=== PATIENT | female | born 2000 | race Caucasian/White ===

== ENCOUNTER → 2019-04-05 | Outpatient (CLI) | payer BC ==
[~2019-04-05] VITALS: Ht 165.1 cm; Wt 51.8 kg
[~2019-04-05] MED LIST: AZIT200S47 PO; CEFD300C3 PO; CITA-105 PO; CYCL10TA9 PO; DICY20TA10 PO; DOXYCYCLINE INJECTION 100 MG in NS (IVPB) 100 ML IV ONE; FLUO10CA19 PO; FLUO40CA PO; GUAI5LIQ PO; HYDR-3714 PO; HYOS0.1216 PO; HYOS0.127 SL; MEDR150D4 IM; NAPR-243 PO; NS IV 1000 ML 1,000 ML IV NR; NS IV 1000 ML 1,000 ML ONE; ONDA-42 PO; PNT40TEC PO; PRD20T PO; SULF1TAB38 PO; TRAM50TA2 PO; methylPREDNISolone 125 MG (Solu-MEDROL) VIAL IV NR; methylPREDNISolone 125 MG (Solu-MEDROL) VIAL ONE
[2019-04-05 10:01] VITALS: BP 112/75
== END ==
LOC: SDC 09:24
PROVIDERS: ATTEND Nurse Practitioner Family
DX: A77.0 Spotted fever due to Rickettsia rickettsii (principal)
CPT/HCPCS: 96361; 96365; 96374

== ENCOUNTER 2019-07-19 20:26 | Emergency (ER) | payer BC ==
[~2019-07-19] VITALS: Ht 162.5 cm; Wt 52.1 kg
[~2019-07-19 20:26] MED LIST changes: -DOXYCYCLINE INJECTION 100 MG in NS (IVPB) 100 ML IV ONE; -NS IV 1000 ML 1,000 ML IV NR; -NS IV 1000 ML 1,000 ML ONE; -methylPREDNISolone 125 MG (Solu-MEDROL) VIAL IV NR; -methylPREDNISolone 125 MG (Solu-MEDROL) VIAL ONE
--- NOTE | 2019-07-19 20:55 | NUR ---
PT WHEELED INTO ED ROOM 6 BY TECH, IMMEDIATELY AFTER PT IN ROOM THE MOTHER OF THE PT PRESENTS TO NURSING DESKING STATING, "IS THERE A REMOTE FOR THE TV?". MOTHER OF PT NOTIFIED THAT DR. CAM WAS ENTERING ROOM AT THIS TIME AND TV WOULD NEED TO REMAIN OFF DURING HER ASSESSMENT. PT MOTHER RETURNS TO ROOM 6 AND PRIOR TO ENTERING TURNS TO CASEY ABAD SITTING AT NURSING DESK AND LOUDLY STATES, "WOW, SHE'S RUDE" AND GLARES AT THIS CYLINDER INSPECTOR/RN. DUE TO THE HOSTILITY AND DISCOMFORT FELT BY THIS CYLINDER INSPECTOR/RN FROM PT MOTHER, TRANSFER OF CARE TO CASEY STACK.
[2019-07-19 20:57] LABS: BILIRUBIN,URINE NEGATIVE (NEGATIVE); CLARITY,URINE CLEAR; COLOR,URINE YELLOW; GLUCOSE, URINE (UA) NEGATIVE (NEGATIVE); KETONES,URINE 3+ (NEGATIVE); LEUKOCYTE ESTERASE ,URINE NEGATIVE (NEGATIVE); NITRITE,URINE NEGATIVE (NEGATIVE); PROTEIN,URINE TRACE (NEGATIVE)
--- NOTE | 2019-07-19 20:59 | ED Back Pain ---
General Chief Complaint: Back Problems Stated Complaint: BACK PAIN Nursing Triage Note: TO ED ROOM 6 VIA W/C. HX CHRONIC BACK PAIN. SAW CHIROPRACTOR YESTERDAY, PAIN INTOLERABLE TODAY. TOOK IBUPROFEN AT 1700 TODAY. CRYING, ANXIOUS DURING TRIAGE. Nursing Sepsis Screen: No Definite Risk Source of Information: Patient History of Present Illness Date Seen by Provider: Jul 19, 2019 Time Seen by Provider: 20:45 Initial Comments PT ARRIVES VIA POV FROM HOME, THEN WANTS WHEELCHAIR ON ARRIVAL, ARRIVES WITH MOM PT STATES THAT SHE "COULDN'T BREATHE YESTERDAY" SO SHE WENT TO THE CHIROPRACTOR AND SHE HAD SEVERAL RIBS OUT AND HE PUT THEM BACK IN PLACE AND STATES TODAY SHE HAS SEVERE PAIN ALL OVER HER ENTIRE BACK STATES "I ALWAYS HAVE BACK PAIN" STATES SHE HAD "T4 AND T5 COMPRESSION FRACTURES TWO TIMES IN 2016"--NO SURGERY. STATES THE FIRST TIME WAS FROM FALLING DOWN STAIRS, THE SECOND TIME WAS 8 MONTHS LATER WHEN SHE WAS DROPPED DURING A CHEERLEADING STUNT. --ON REVIEW OF OLD RECORDS, IT WAS IN 2014, AND SHE HAD T5 ENDPLATE MINOR COMPRESSION, AND IT WAS NOT PRESENT ON HER SECOND VISIT LATER THAT SAME YEAR. BOTH TIMES SHE WAS TRANSFERRED TO AND NO SURGERY WAS DONE. PT STATES SHE HAS BEEN "TAKING 5 IBUPROFEN EVERY HOUR ALL DAY" STATES SHE HAS BEEN SITTING IN A CHAIR AT WORK ALL DAY TODAY HAD NORMAL BM YESTERDAY, BUT HAS NOT HAD A BM TODAY NO PROBLEMS URINATING AND IS VOIDING A NORMAL AMOUNT. STATES BOTH OF HER HANDS ARE NUMB AND TINGLY RIGHT NOW ( PT IS HYPERVENTILATING AND HAVING CARPAL SPASMS ) STATES SHE STARTED HAVING A NON-PRODUCTIVE COUGH AND NASAL CONGESTION YESTERDAY, AND BEGAN HAVING A SORE THROAT TODAY NO FEVER NO CHEST PAIN NO ONE ELSE IN HOUSEHOLD IS ILL. LMP WAS IN APRIL--ON OCP'S STATES SHE HAS RMSF IN [facility], AND HAS NOT HAD A PERIOD SINCE SHE WAS TREATED WITH ANTIBIOTICS FOR THAT. Other Comments PCP: DR. PALENCIA Allergies and Home Medications Allergies Coded Allergies: fentanyl (Verified Allergy, Mild, 01/22/15) itching hydrocodone (Unverified Allergy, Unknown, 05/25/15) morphine (Unverified Allergy, Unknown, 05/25/15) promethazine (Unverified Allergy, Unknown, 05/25/15) Home Medications Albuterol Sulfate 1 Puff Puff, 2 PUFF IH Q4H Prescribed by: BRAYDON CAM on 07/19/192301 Azithromycin 500 Mg Tablet, 500 MG PO DAILY FOR INFECTION Prescribed by: BRAYDON CAM on 07/19/192301 Cefdinir 300 Mg Capsule, 300 MG PO BID Prescribed by: BRAYDON CAM on 07/19/192301 Citalopram Hydrobromide 40 Mg Tablet, 40 MG PO DAILY, (Reported) Cyclobenzaprine HCl 5 Mg Tablet, 5-10 MG PO Q8H Prescribed by: BRAYDON CAM on 07/19/192301 Methylprednisolone 4 Mg Tab.ds.pk, 4 MG PO UD Prescribed by: BRAYDON CAM on 07/19/192301 Patient Home Medication List Home Medication List Reviewed: Yes Review of Systems Constitutional: no symptoms reported; No fever EENTM: see HPI, nose congestion, throat pain Respiratory: see HPI, cough, short of breath Cardiovascular: no symptoms reported; No chest pain, No edema, No palpitations, No syncope Gastrointestinal: no symptoms reported; No abdominal pain, No nausea, No vomiting Genitourinary: no symptoms reported : No LMP: Apr 05, 2019 Control/STD Prophylaxis: BC Pills Musculoskeletal: see HPI, back pain Skin: no symptoms reported; No rash Psychiatric/Neurological: See HPI, Anxiety, Paresthesia Past Paskmvx-Ddujdk-Nieqsd Hx Patient Social History Alcohol Use: Occasionally Uses Recreational Drug Use: Yes (DENIES BUT TESTED + FOR THC 07/19/19) Drug of Choice: DENIES BUT TESTED + FOR THC ON 07/19/19 Smoking Status: Never a Smoker Recent Foreign Travel: No Contact w/Someone Who Travel: No Recent Infectious Disease Expo: No Recent Hopitalizations: No Physical Abuse: No Sexual Abuse: No Mistreated: No Fear: No Immunizations Up To Date Tetanus Booster (TDap): Less than 5yrs PED Vaccines UTD: Yes Seasonal Allergies Seasonal Allergies: Yes Past Medical History Surgeries: Yes (EGD; NODULE ON NECK REMOVED; LAP CHOLECYSTECTOMY) Gallbladder, Orthopedic, Tonsillectomy Respiratory: Yes Asthma Currently Using CPAP: No Currently Using BIPAP: No Cardiac: No Neurological: Yes (transient paralysis of the lower extremities after back injury January 2015--MINOR COMPRESSION OF ENDPLATE OF T5, WITH NO SPINAL CORD ENCROACHMENT AND NO SURGERY--COMPLETE HEALING ON REPEAT CT SCANS) Female Reproductive Disorders: Menstrual Problems Sexually Transmitted Disease: No Genitourinary: Yes UTI-Chronic Gastrointestinal: Yes Gall Bladder Disease Musculoskeletal: Yes (COMPRESSION FRACTURE OF ENDPLATE T5 IN 2015--COMPLETE RESOLUTION ON REPEAT CT SCANS, NO SURGERY--HAD 2 SEPARATE INJURIES IN 2015; HAS CHRONIC BACK PAIN ) Back Injury Endocrine: No HEENT: No Cancer: No Psychosocial: Yes Anxiety, Depression Integumentary: No Blood Disorders: No Adverse Reaction/Blood Tranf: No Family Medical History Arthritis 19 MOTHER, Onset:Unknown Cervical cancer maternal grandmother, Onset:Unknown Completed stroke maternal grandmother, Onset:Unknown FH: breast cancer maternal grandmother, Onset:Unknown FH: lung cancer paternal grandfather, Onset:Unknown Kidney stone 19 MOTHER, Onset:Unknown Myocardial infarction maternal grandfather, Onset:Unknown UTI (urinary tract infection) 19 MOTHER, Onset:Unknown maternal grandmother, Onset:Unknown Physical Exam Vital Signs Vital Signs - First Documented 07/19/19 07/19/19 20:43 23:13 Temp 37.3 Pulse 120 Resp 22 B/P (MAP) 115/79 (91) Pulse Ox 98 O2 Delivery Room Air Capillary Refill : Less Than 3 Seconds Height, Weight, BMI Height: 5'5.00" Weight: 114lbs. 3.2oz. 51.122183hm; 19.00 BMI Method:Stated General Appearance: Anxious, Thin, Other (PT EXTREMELY DRAMATIC, EXTREMELY ANXIOUS --NEARLY HYSTERICAL--WITH WAILING, MOANING, SOBBING AND SIGNIFICANTLY HYPERVENTILATING ON ARRIVAL, WITH CARPAL SPASMS ON ARRIVAL. ) HEENT: PERRL/EOMI, TMs Normal, Other (PHARYNIX MILDLY INFLAMED. + NASAL CONGESTION AND CLEAR RHINORRHEA, NO SINUS TENDERNESS) Neck: Full Range of Motion, Normal Inspection, Non Tender, Supple Cardiovascular: Regular Rate, Rhythm, No Edema, No JVD, No Murmur, Normal Peripheral Pulses Respiratory: Chest Non Tender, Normal Breath Sounds, Other (HYPERVENTILATING ON ARRIVAL) Peripheral Pulses: 2+ Dorsalis Pedis (R), 2+ Left Dors-Pedis (L), 2+ Radial Pulses (R), 2+ Radial Pulses (L) Gastrointestinal: Normal Bowel Sounds, No Organomegaly, No Pulsatile Mass, Non Tender, Soft Back: Other (DIFFUSE TENDERNESS OF ENTIRE BACK) Extremity: Normal Capillary Refill, Non Tender, No Calf Tenderness, No Pedal Edema, Other (CARPAL SPASMS ON ARRIVAL) Neurologic/Psychiatric: Alert, Oriented x3, No Motor/Sensory Deficits, svp marketing II- XII Norm as Tested, Other (MENTATION/BEHAVIOR ABOVE) Skin: Normal Color, Warm/Dry Progress/Results/Core Measures Results/Orders Lab Results Laboratory Tests Test 07/19/19 20:51 07/19/19 21:25 07/19/19 22:17 Range/Units Urine Color YELLOW Urine Clarity CLEAR Urine pH 6.0 5-9 Urine Specific [place] 1.025 H 1.016-1.022 Urine Protein TRACE NEGATIVE Urine Glucose (UA) NEGATIVE NEGATIVE Urine Ketones 3+ H NEGATIVE Urine Nitrite NEGATIVE NEGATIVE Urine Bilirubin NEGATIVE NEGATIVE Urine Urobilinogen 0.2 < = 1.0 MG/DL Urine Leukocyte Esterase NEGATIVE NEGATIVE Urine RBC (Auto) 1+ H NEGATIVE Urine RBC 0-2 /HPF Urine WBC NONE /HPF Urine Squamous Epithelial Cells 2-5 /HPF Urine Crystals NONE /LPF Urine Bacteria TRACE /HPF Urine Casts NONE /LPF Urine Mucus MODERATE H /LPF Urine Culture Indicated NO Urine Opiates Screen NEGATIVE NEGATIVE Urine Oxycodone Screen NEGATIVE NEGATIVE Urine Methadone Screen NEGATIVE NEGATIVE Urine Propoxyphene Screen NEGATIVE NEGATIVE Urine Barbiturates Screen NEGATIVE NEGATIVE Ur Tricyclic Antidepressants Screen POSITIVE H NEGATIVE Urine Phencyclidine Screen NEGATIVE NEGATIVE Urine Amphetamines Screen NEGATIVE NEGATIVE Urine Methamphetamines Screen NEGATIVE NEGATIVE Urine Benzodiazepines Screen NEGATIVE NEGATIVE Urine Cocaine Screen NEGATIVE NEGATIVE Urine Cannabinoids Screen POSITIVE H NEGATIVE White Blood Count 5.3 4.3-11.0 10^3/uL Red Blood Count 4.39 4.35-5.85 10^6/uL Hemoglobin 14.0 11.5-16.0 G/DL Hematocrit 40 35-52 % Mean Corpuscular Volume 90 80-99 FL Mean Corpuscular Hemoglobin 32 25-34 PG Mean Corpuscular Hemoglobin Concent 35 32-36 G/DL Red Cell Distribution Width 12.0 10.0-14.5 % Platelet Count 178 130-400 10^3/uL Mean Platelet Volume 10.7 H 7.4-10.4 FL Neutrophils (%) (Auto) 67 42-75 % Lymphocytes (%) (Auto) 23 12-44 % Monocytes (%) (Auto) 9 0-12 % Eosinophils (%) (Auto) 0 0-10 % Basophils (%) (Auto) 0 0-10 % Neutrophils # (Auto) 3.6 1.8-7.8 X 10^3 Lymphocytes # (Auto) 1.2 1.0-4.0 X 10^3 Monocytes # (Auto) 0.5 0.0-1.0 X 10^3 Eosinophils # (Auto) 0.0 0.0-0.3 10^3/uL Basophils # (Auto) 0.0 0.0-0.1 10^3/uL Sodium Level 139 135-145 MMOL/L Potassium Level 4.0 3.6-5.0 MMOL/L Chloride Level 103 98-107 MMOL/L Carbon Dioxide Level 18 L 21-32 MMOL/L Anion Gap 18 H 5-14 MMOL/L Blood Urea Nitrogen 11 7-18 MG/DL Creatinine 0.94 0.60-1.30 MG/DL Estimat Glomerular Filtration Rate > 60 BUN/Creatinine Ratio 12 Glucose Level 87 70-105 MG/DL Calcium Level 9.8 8.5-10.1 MG/DL Corrected Calcium 9.5 8.5-10.1 MG/DL Total Bilirubin 1.0 0.1-1.0 MG/DL Aspartate Amino Transf (AST/SGOT) 16 5-34 U/L Alanine Aminotransferase (ALT/SGPT) 16 0-55 U/L Alkaline Phosphatase 46 40-136 U/L Total Protein 7.5 6.4-8.2 GM/DL Albumin 4.4 3.2-4.5 GM/DL Group A Streptococcus Screen NEGATIVE NEGATIVE Micro Results Microbiology 07/19/19 Influenza Types A,B Antigen (LIBIA) - Final, Complete My Orders Orders - BRAYDON CAM DO Urine Bedside (07/19/19 20:43) Ua Culture If Indicated (07/19/19 20:43) Ed Iv/Invasive Line Start (07/19/19 21:00) Chest Pa/Lat (2 View) (07/19/19 21:00) Cbc With Automated Diff (07/19/19 21:00) Comprehensive Metabolic Panel (07/19/19 21:00) Drug Screen Stat (Urine) (07/19/19 21:00) Rapid Strep A Screen (07/19/19 21:00) Influenza A And B Antigens (07/19/19 21:00) Ed Iv/Invasive Line Start (07/19/19 21:00) Lactated Ringers (Lr 1000 Ml Iv Solution (07/19/19 21:00) Ketorolac Injection (Toradol Injection) (07/19/19 21:00) Orphenadrine Injection (Norflex Injectio (07/19/19 21:00) Ct Cerv/Thoracic/Lumbar Wo (07/19/19 21:00) Diphenhydramine Injection (Benadryl Inje (07/19/19 21:00) Ondansetron Injection (Zofran Injectio (07/19/19 22:15) Ceftriaxone For Iv Use (Rocephin For I (07/19/19 22:15) Azithromycin Tablet (Zithromax Tablet) (07/19/19 22:15) Rt Request For Service (07/19/19 22:58) Medications Given in ED Current Medications Medications Dose Ordered Sig/Dean Route Start Time Stop Time Status Last Admin Dose Admin Azithromycin 500 mg ONCE ONCE PO 07/19/19 22:15 07/19/19 22:16 DC 07/19/19 22:35 500 MG Ceftriaxone Sodium 1000 mg/ Sterile Water 10 ml @ 200 mls/hr ONCE ONCE IV 07/19/19 22:15 07/19/19 22:17 DC 07/19/19 22:35 200 MLS/HR Diphenhydramine HCl 50 mg ONCE ONCE IVP 07/19/19 21:00 07/19/19 21:03 DC 07/19/19 21:27 50 MG Lactated Ringer's 1,000 ml @ 0 mls/hr Q0M ONCE IV 07/19/19 21:00 07/19/19 21:03 DC 07/19/19 21:36 0 MLS/HR Ondansetron HCl 4 mg ONCE ONCE IVP 07/19/19 22:15 07/19/19 22:16 DC 07/19/19 22:34 4 MG Vital Signs/I&O 07/19/19 07/19/19 07/19/19 20:43 23:13 23:26 Temp 37.3 37.3 Pulse 120 120 Resp 22 22 B/P (MAP) 115/79 (91) 106/87 (91) Pulse Ox 98 O2 Delivery Room Air Room Air 07/20/19 00:00 Intake Total 1000 ml Balance 1000 ml Blood Pressure Mean: 91 POS Progress Progress Note : Progress Note PT EVENTUALLY CALMED, STOPPED HYPERVENTILATING AND CARPAL SPASMS SUBSIDED. GIVEN TORADOL, NORFLEX AND BENADRYL AND SYMPTOMS IMPROVED NO DETERIORATION IN PT'S CONDITION DURING ER STAY PT AMBULATED OUT OF ER ON HER OWN, VERY SLOWLY AND VERY DRAMATICALLY. Diagnostic Imaging Comments CT CERVICAL/ THORACIC/LUMBAR SPINE--NORMAL, WITH NO EVIDENCE OF PREVIOUS T5 ENDPLATE COMPRESSION--COMPLETELY RESOLVED. RIGHT PERIHILAR CONSOLIDATION--PER RADIOLOGIST REPORT AT 2209 CXR--RUL PERIHILAR INFILTRATE--PER RADIOLOGIST REPORT AT 2253 Reviewed: Reviewed by Me Departure Impression Primary Impression: Right upper lobe pneumonia Additional Impression: Exacerbation of chronic back pain Disposition: HOME, SELF-CARE Condition: Improved Departure-Patient Inst. Referrals: LAILA PALENCIA DO (PCP/Family) Primary Care Physician Patient Instructions: MANAGING YOUR CHRONIC PAIN, Pneumonia, Adult (DC) Add. Discharge Instructions: NO MARIJUANA OR SMOKING OR VAPING OF ANY KIND LOTS OF CLEAR LIQUIDS--WATER, BROTH, JELLO, GATORADE TYLENOL 1 GRAM/ MOTRIN 800 MG 4 TIMES A DAY NEEDED FOR PAIN OR FEVER MUCINEX DM NEEDED FOR COUGH FOLLOW UP WITH DR. PALENCIA IN 3-4 DAYS FOR FURTHER CARE, RETURN TO ER IF WORSE All discharge instructions reviewed with patient and/or family. Voiced understanding. Scripts Azithromycin (Zithromax) 500 Mg Tablet 500 MG PO DAILY, #5 TAB FOR INFECTION Prov: BRAYDON CAM DO 07/19/19 Methylprednisolone (Medrol) 4 Mg Tab.ds.pk 4 MG PO UD, #1 PKG Prov: BRAYDON CAM DO 07/19/19 Cyclobenzaprine HCl (Cyclobenzaprine HCl) 5 Mg Tablet 5-10 MG PO Q8H for Muscle Cramps, #15 TAB Prov: BRAYDON CAM DO 07/19/19 Cefdinir (Cefdinir) 300 Mg Capsule 300 MG PO BID for FOR INFECTION, #20 CAP Prov: BRAYDON CAM DO 07/19/19 Albuterol Sulfate (PROAIR HFA) 1 Puff Puff 2 PUFF IH Q4H for BREATHING, #1 GM Prov: BRAYDON CAM DO 07/19/19 BRAYDON CAM DO Jul 19, 2019 20:59 POS
[2019-07-19] MEDS ORDERED: KETOROLAC 30 MG/ML VIAL IVP STA (21:00)
[2019-07-19] MEDS ORDERED: ORPHENADRINE 60 MG/2 ML (NORFLEX) AMP IV STA (21:00)
[2019-07-19] MEDS ORDERED: diphenhydrAMINE 50 MG/ML INJ (BENADRYL) IVP ONE (21:00)
[2019-07-19] MEDS ORDERED: LACTATED RINGERS 1,000 ML IV ONE (21:00)
[2019-07-19 21:09] LABS: BACTERIA,URINE TRACE /HPF; RBC,URINE 0-2 /HPF
[2019-07-19 21:20] LABS: AMPHETAMINE SCREEN, URINE NEGATIVE (NEGATIVE); BARBITURATE SCREEN URINE NEGATIVE (NEGATIVE); BENZODIAZEPINES SCREEN URINE NEGATIVE (NEGATIVE); CANNABINOID SCREEN, URINE POSITIVE (NEGATIVE); COCAINE SCREEN URINE NEGATIVE (NEGATIVE); METHADONE STAT NEGATIVE (NEGATIVE); METHAMPHETAMINE SCREEN URINE S NEGATIVE (NEGATIVE); OPIATE SCREEN URINE NEGATIVE (NEGATIVE); OXYCODONE STAT NEGATIVE (NEGATIVE); PROPOXYPHENE STAT NEGATIVE (NEGATIVE); TRICYCLIC ANTIDEPRESSANTS SCRE POSITIVE (NEGATIVE)
[2019-07-19 21:33] LABS: BASOPHILS % (AUTO) 0 % (0-10); EOSINOPHILS % (AUTO) 0 % (0-10); HEMATOCRIT 40 % (35-52); LYMPHOCYTES # (AUTO) 1.2 X 10^3 (1.0-4.0); LYMPHOCYTES % (AUTO) 23 % (12-44); MEAN CORPUSCULAR HEMOGLOBIN 32 PG (25-34); MEAN CORPUSCULAR HGB CONC 35 G/DL (32-36); MEAN CORPUSCULAR VOLUME 90 FL (80-99); MEAN PLATELET VOLUME 10.7 FL (7.4-10.4); MONOCYTES # (AUTO) 0.5 X 10^3 (0.0-1.0); MONOCYTES % (AUTO) 9 % (0-12); NEUTROPHILS # (AUTO) 3.6 X 10^3 (1.8-7.8); NEUTROPHILS % (AUTO) 67 % (42-75); PLATELET COUNT 178 10^3/uL (130-400); WHITE BLOOD COUNT 5.3 10^3/uL (4.3-11.0)
[2019-07-19 21:53] LABS: ALANINE AMINOTRANSFERASE 16 U/L (0-55); ALBUMIN 4.4 GM/DL (3.2-4.5); ALKALINE PHOSPHATASE 46 U/L (40-136); BUN/CREATININE RATIO 12; CALCIUM 9.8 MG/DL (8.5-10.1); CARBON DIOXIDE 18 MMOL/L (21-32); CHLORIDE 103 MMOL/L (98-107); CREATININE SERUM 0.94 MG/DL (0.60-1.30); GFR ESTIMATED > 60; GLUCOSE 87 MG/DL (70-105); SODIUM 139 MMOL/L (135-145); TOTAL PROTEIN 7.5 GM/DL (6.4-8.2)
--- NOTE | 2019-07-19 22:06 | Diagnostic Imaging Report ---
TECHNIQUE: Noncontrast CT of the cervical, thoracic, and lumbar spine. Sagittal and coronal reformats were obtained and reviewed. Dose reduction techniques were utilized. REASON FOR EXAM: Back pain. History of T5 fracture. COMPARISON: 08/11/2015 FINDINGS: No acute fracture or dislocation is seen in the cervical, thoracic, and lumbar spine. Alignment is anatomic. The craniocervical junction is maintained. No evidence of acute spinal canal compression is seen. The vertebral body heights are well-maintained. No significant degenerative changes are present. The included soft tissues are unremarkable. Included views of the chest demonstrate consolidative opacities in the right perihilar region. IMPRESSION: 1. No acute fracture or dislocation in the cervical, thoracic, and lumbar spine. The previously noted fracture involving the superior endplate of T5, which was not visualized on the prior exam, is again not visualized and likely represents complete resolution. 2. Consolidative opacities in the right perihilar region, which may represent infection. Dictated by: Dictated on workstation # [id number]
--- NOTE | 2019-07-19 22:14 | Diagnostic Imaging Report ---
Patient History: Cough. Back pain. Technique: Two views of the chest Comparison: 01/22/2015 FINDINGS: The lung volumes are normal. Consolidative opacity is seen in the right upper lobe near the perihilar region. No pleural effusion or pneumothorax. The cardiac silhouette is unremarkable. No acute osseous abnormalities. IMPRESSION: 1. Consolidative opacity in the right upper lobe in the perihilar region, concerning for infection. Dictated by: Dictated on workstation # [id number]
[2019-07-19] MEDS ORDERED: ONDANSETRON 4 MG/2 ML (SDV) Z0FRAN IVP ONE (22:15)
[2019-07-19] MEDS ORDERED: cefTRIAXone FOR IV USE 1,000 MG in WATER (STERILE) FOR INJECTION 10 ML IV ONE (22:15)
[2019-07-19] MEDS ORDERED: AZITHROMYCIN 250 MG TAB (ZITHROMAX) PO ONE (22:15)
[2019-07-19] MEDS ORDERED: CYCL5TAB PO (23:02)
[2019-07-19] MEDS ORDERED: METH4TAB PO (23:02)
[2019-07-19] MEDS ORDERED: AZIT500T PO (23:02)
[2019-07-19] MEDS ORDERED: RT-ALBUINH IH (23:02)
[2019-07-19] MEDS ORDERED: CEFD300C3 PO (23:02)
[2019-07-19 23:13] VITALS: BP 106/87
== END 2019-07-19 23:20 | disposition home or self-care (01) ==
LOC: EDUNIT# 20:26 → ER 20:27
DX: J18.1 Lobar pneumonia, unspecified organism (principal); M54.9 Dorsalgia, unspecified; G89.29 Other chronic pain; J45.909 Unspecified asthma, uncomplicated; F41.9 Anxiety disorder, unspecified; F32.9 Major depressive disorder, single episode, unspecified; Z88.5 Allergy status to narcotic agent; Z88.8 Allergy status to other drugs, medicaments and biological substances; Z90.49 Acquired absence of other specified parts of digestive tract; Z90.89 Acquired absence of other organs; Z87.440 Personal history of urinary (tract) infections; Z80.49 Family history of malignant neoplasm of other genital organs; Z80.3 Family history of malignant neoplasm of breast; Z80.1 Family history of malignant neoplasm of trachea, bronchus and lung
CPT/HCPCS: 36415; 71046; 72125; 72128; 72131; 80053; 80306; 81000; 84703; 85025; 87430; 87804; 96361; 96374; 96375

== ENCOUNTER 2021-09-28 19:29 | Emergency (ER) | payer BC ==
[~2021-09-28] VITALS: Ht 160 cm; Wt 50.0 kg
[~2021-09-28 19:29] MED LIST changes: +AZIT500T PO; +CYCL5TAB PO; +METH4TAB PO; +RT-ALBUINH IH
[2021-09-28 19:52] LABS: BILIRUBIN,URINE NEGATIVE (NEGATIVE); CLARITY,URINE CLOUDY; COLOR,URINE YELLOW; GLUCOSE, URINE (UA) NEGATIVE (NEGATIVE); KETONES,URINE 2+ (NEGATIVE); LEUKOCYTE ESTERASE ,URINE 2+ (NEGATIVE); NITRITE,URINE NEGATIVE (NEGATIVE); PROTEIN,URINE TRACE (NEGATIVE)
[2021-09-28] MEDS ORDERED: NS IV 1000 ML 1,000 ML IV STA (19:52)
--- NOTE | 2021-09-28 19:56 | ED GU-Female ---
General Chief Complaint: OB < 20 WEEKS Stated Complaint: 8 WKS PREG - VOMTIING Nursing Triage Note: PT AMB TO ED BY POV WITH C/O N/V X 1 WK. PT IS APPROX 8 WKS . PT REPORTS USING MARIJUANA "TO HELP WITH THE NAUSEA." REPORTS HER OB WILL NOT PRESCRIBE HER ANY NAUSEA MEDICATION UNTIL SHE IS SEEN AGAIN IN TWO WEEKS. Source: patient Exam Limitations: no limitations History of Present Illness Date Seen by Provider: Sep 28, 2021 Time Seen by Provider: 19:53 Initial Comments Patient is a 21-year-old female presents ED with vomiting. She reports vomiting over the past week. She reports 10+ episodes of vomiting daily. Patient . She states she was seen by Dr. OQUENDO nurse this week and had lab work drawn. She has not been able to keep any food or fluid down. She states she feels dehydrated. She denies of any specific abdominal pain, diarrhea, fever, chills. No known medical problems. History of cholecystectomy. Decreased urine output without any pain. No vaginal bleeding or current abdominal pain. 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 Last menstrual cycle early August. Allergies and Home Medications Allergies Coded Allergies: fentanyl (Verified Allergy, Mild, 01/22/15) itching hydrocodone (Unverified Allergy, Unknown, 05/25/15) morphine (Unverified Allergy, Unknown, 05/25/15) promethazine (Unverified Allergy, Unknown, 05/25/15) Patient Home Medication List Home Medication List Reviewed: Yes Albuterol Sulfate (Proair Hfa) 1 Puff Puff, 2 PUFF IH Q4H Prescribed by: BRAYDON CAM on 07/19/192301 Azithromycin (Zithromax) 500 Mg Tablet, 500 MG PO DAILY Prescribed by: BRAYDON CAM on 07/19/192301 Cefdinir (Cefdinir) 300 Mg Capsule, 300 MG PO BID Prescribed by: BRAYDON CAM on 07/19/192301 Cephalexin (Cephalexin) 500 Mg Tablet, 500 MG PO BID Prescribed by: NAZARIO LARES on 09/28/212117 Citalopram Hydrobromide (Citalopram Hbr) 40 Mg Tablet, 40 MG PO DAILY, (Reported) Entered as Reported by: ROLANDA SMITH on 10/29/14 2070 Cyclobenzaprine HCl (Cyclobenzaprine HCl) 5 Mg Tablet, 5-10 MG PO Q8H Prescribed by: BRAYDON CAM on 07/19/192301 Fluconazole (Diflucan) 150 Mg Tablet, 150 MG PO DAILY Prescribed by: NAZARIO LARES on 09/28/212117 Methylprednisolone (Medrol) 4 Mg Tab.ds.pk, 4 MG PO UD Prescribed by: BRAYDON CAM on 07/19/192301 Metoclopramide HCl (Reglan) 10 Mg Tablet, 10 MG PO TID PRN for NAUSEA/VOMITING- 1ST LINE Prescribed by: NAZARIO LARES on 09/28/212118 Review of Systems Review of Systems Constitutional: No chills, No diaphoresis, No fever, No malaise EENTM: No ear pain, No vision loss, No nose pain, No throat pain, No throat swelling Respiratory: No cough, No orthopnea, No short of breath Gastrointestinal: No abdominal pain, No diarrhea; nausea, vomiting Genitourinary: denies burning, denies discharge, denies dysuria, denies frequency Musculoskeletal: No back pain, No joint pain Skin: No change in color, No change in hair/nails All Other Systemes Reviewed Negative Unless Noted: Yes Past Gjamcwo-Qlfmrl-Rkupfc Hx Patient Social History Tobacco Use?: No Smoking Status: Former Smoker Use of E-Cig and/or Vaping dev: No Substance use?: Yes Substance type: Marijuana Substance frequency: Daily Alcohol Use?: No Pt feels they are or have been: No Immunizations Up To Date Tetanus Booster (TDap): Less than 5yrs PED Vaccines UTD: Yes Influenza Vaccine Up-to-Date: No; Not Current First/Initial COVID19 Vaccinat: N/A Seasonal Allergies Seasonal Allergies: Yes Past Medical History Surgery/Hospitalization HX: CHOLECYSTECTOMY Surgeries: Yes (EGD; NODULE ON NECK REMOVED; LAP CHOLECYSTECTOMY) Gallbladder, Orthopedic, Tonsillectomy Respiratory: Yes Asthma Currently Using CPAP: No Currently Using BIPAP: No Cardiac: No Neurological: Yes Last Menstrual Period: Aug 06, 2021 Female Reproductive Disorders: Menstrual Problems Sexually Transmitted Disease: No Genitourinary: Yes UTI-Chronic Gastrointestinal: Yes Gall Bladder Disease Musculoskeletal: Yes Back Injury Endocrine: No HEENT: No Cancer: No Psychosocial: Yes Anxiety, Depression Integumentary: No Blood Disorders: No Adverse Reaction/Blood Tranf: No Family Medical History Arthritis 19 MOTHER, Onset:Unknown Cervical cancer maternal grandmother, Onset:Unknown Completed stroke maternal grandmother, Onset:Unknown FH: breast cancer maternal grandmother, Onset:Unknown FH: lung cancer paternal grandfather, Onset:Unknown Kidney stone 19 MOTHER, Onset:Unknown Myocardial infarction maternal grandfather, Onset:Unknown UTI (urinary tract infection) 19 MOTHER, Onset:Unknown maternal grandmother, Onset:Unknown Physical Exam Vital Signs Vital Signs - First Documented 09/28/21 19:36 Temp 37.0 Pulse 75 Resp 16 B/P (MAP) 115/77 (90) Pulse Ox 99 O2 Delivery Room Air Capillary Refill : Less Than 3 Seconds Height, Weight, BMI Height: 5'5.00" Weight: 114lbs. 3.2oz. 51.551137kd; 19.00 BMI Method:Stated General Appearance: WD/WN, no apparent distress HEENT: PERRL/EOMI, normal ENT inspection, TMs normal, pharynx normal Neck: non-tender, full range of motion, supple Cardiovascular: regular rate, rhythm, no edema, no gallop, no JVD Respiratory: chest non-tender, lungs clear, normal breath sounds, no respiratory distress, no accessory muscle use Gastrointestinal: normal bowel sounds, non tender, soft, no organomegaly Back: normal inspection, no CVA tenderness, no vertebral tenderness Extremities: normal range of motion, non-tender, normal inspection, no pedal edema, no calf tenderness Neurologic/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 nml as tested, no motor/sensory deficits, alert, normal mood/affect, oriented x 3 Skin: normal color, warm/dry Progress/Results/Core Measures Suspected Sepsis SIRS Temperature: Pulse: 75 Respiratory Rate: 16 Laboratory Tests 09/28/21 20:05: White Blood Count 8.7 Blood Pressure 115 /77 Mean: 90 Laboratory Tests 09/28/21 20:05: Creatinine 0.70, Platelet Count 269, Total Bilirubin 1.7H Results/Orders Lab Results Laboratory Tests Test 09/28/21 19:45 09/28/21 20:05 09/28/21 20:56 Range/Units Urine Color YELLOW Urine Clarity CLOUDY Urine pH 6.0 5-9 Urine Specific [place] >=1.030 1.016-1.022 Urine Protein TRACE H NEGATIVE Urine Glucose (UA) NEGATIVE NEGATIVE Urine Ketones 2+ H NEGATIVE Urine Nitrite NEGATIVE NEGATIVE Urine Bilirubin NEGATIVE NEGATIVE Urine Urobilinogen 0.2 < = 1.0 MG/DL Urine Leukocyte Esterase 2+ H NEGATIVE Urine RBC (Auto) TRACE-I H NEGATIVE Urine RBC 10-25 H /HPF Urine WBC 25-50 H /HPF Urine Squamous Epithelial Cells 2-5 /HPF Urine Renal Epithelial Cells NONE /HPF Urine Crystals NONE /LPF Urine Bacteria LARGE H /HPF Urine Casts NONE /LPF Urine Mucus LARGE H /LPF Urine Yeast MODERATE H /HPF Urine Culture Indicated YES Urine Opiates Screen NEGATIVE NEGATIVE Urine Oxycodone Screen NEGATIVE NEGATIVE Urine Methadone Screen NEGATIVE NEGATIVE Urine Propoxyphene Screen NEGATIVE NEGATIVE Urine Barbiturates Screen NEGATIVE NEGATIVE Ur Tricyclic Antidepressants Screen NEGATIVE NEGATIVE Urine Phencyclidine Screen NEGATIVE NEGATIVE Urine Amphetamines Screen NEGATIVE NEGATIVE Urine Methamphetamines Screen NEGATIVE NEGATIVE Urine Benzodiazepines Screen NEGATIVE NEGATIVE Urine Cocaine Screen NEGATIVE NEGATIVE Urine Cannabinoids Screen POSITIVE H NEGATIVE White Blood Count 8.7 4.3-11.0 10^3/uL Red Blood Count 4.43 3.80-5.11 10^6/uL Hemoglobin 14.5 11.5-16.0 g/dL Hematocrit 41 35-52 % Mean Corpuscular Volume 93 80-99 fL Mean Corpuscular Hemoglobin 33 25-34 pg Mean Corpuscular Hemoglobin Concent 35 32-36 g/dL Red Cell Distribution Width 11.5 10.0-14.5 % Platelet Count 269 130-400 10^3/uL Mean Platelet Volume 10.4 9.0-12.2 fL Immature Granulocyte % (Auto) 0 % Neutrophils (%) (Auto) 75 42-75 % Lymphocytes (%) (Auto) 17 12-44 % Monocytes (%) (Auto) 5 0-12 % Eosinophils (%) (Auto) 1 0-10 % Basophils (%) (Auto) 1 0-10 % Neutrophils # (Auto) 6.5 1.8-7.8 10^3/uL Lymphocytes # (Auto) 1.5 1.0-4.0 10^3/uL Monocytes # (Auto) 0.5 0.0-1.0 10^3/uL Eosinophils # (Auto) 0.1 0.0-0.3 10^3/uL Basophils # (Auto) 0.1 0.0-0.1 10^3/uL Immature Granulocyte # (Auto) 0.0 0.0-0.1 10^3/uL Sodium Level 137 135-145 MMOL/L Potassium Level 3.4 L 3.6-5.0 MMOL/L Chloride Level 104 98-107 MMOL/L Carbon Dioxide Level 20 L 21-32 MMOL/L Anion Gap 13 5-14 MMOL/L Blood Urea Nitrogen 13 7-18 MG/DL Creatinine 0.70 0.60-1.30 MG/DL Estimat Glomerular Filtration Rate 125 BUN/Creatinine Ratio 19 Glucose Level 87 70-105 MG/DL Calcium Level 9.7 8.5-10.1 MG/DL Corrected Calcium 9.3 8.5-10.1 MG/DL Total Bilirubin 1.7 H 0.1-1.0 MG/DL Aspartate Amino Transf (AST/SGOT) 24 5-34 U/L Alanine Aminotransferase (ALT/SGPT) 33 0-55 U/L Alkaline Phosphatase 46 40-136 U/L Total Protein 7.5 6.4-8.2 GM/DL Albumin 4.5 3.2-4.5 GM/DL Human Chorionic Gonadotropin, Quant 45708 H <5 MIU/ML Micro Results Microbiology 09/28/21 Wet Prep - Final, Complete My Orders Orders - ARNAV DUMAS Ua Culture If Indicated (09/28/21 19:41) Hcg,Quantitative (09/28/21 19:41) Cbc With Automated Diff (09/28/21 19:52) Comprehensive Metabolic Panel (09/28/21 19:52) Ns Iv 1000 Ml (Sodium Chloride 0.9%) (09/28/21 19:52) Metoclopramide Injection (Reglan Injecti (09/28/21 20:00) Drug Screen Stat (Urine) (09/28/21 19:52) Urine Culture (09/28/21 19:45) Diphenhydramine Injection (Benadryl Inje (09/28/21 20:30) Wet Prep (09/28/21 20:41) Chlamydia Trachomatis Swab (09/28/21 20:46) Neisseria Gonorrhea Swab (09/28/21 20:46) Medications Given in ED Vital Signs/I&O Capillary Refill : Less Than 3 Seconds Blood Pressure Mean: 90 Departure Communication (PCP) Patient is a 21-year-old female presents ED with vomiting over the past week. Patient states she has not been able to eat or drink. 10+ episodes daily without any hematemesis. Patient vital signs stable. She has no current abdominal tenderness. Denies any vaginal bleeding. . Urinalysis concerning for UTI with positive yeast. Wet mount was positive for vaginal yeast. Currently pending for chlamydia gonorrhea. She denies of any concern for STD was not treated prophylactically. No sexual course until results. Normal lab work besides potassium 3.4. Discussed oral hydration with Pedialyte, Gatorade. She was given IV Reglan with Benadryl with improvement of symptoms. Tolerating p.o. fluid here in the ED. Remained stable vital signs. Beta quant 56,000. She is scheduled to follow-up with Dr. OQUENDO in 2 weeks. Will treat for UTI with Keflex. Patient refused pelvic exam. She did self swab. Did offer ultrasound since elevated beta quant and has had no previous ultrasound however she would rather wait at this time. Patient did not have any lower abdominal tenderness, lower abdominal pain, vaginal bleeding which is reassuring for no current threatened miscarriage versus ectopic. If develop lower abdominal pain, vaginal bleeding to return back to ED for ultrasound. Patient states she did get lab work done by Dr. OQUENDO last week Impression Primary Impression: Vomiting during Additional Impression: UTI (urinary tract infection) Disposition: 01 HOME, SELF-CARE Condition: Stable Departure-Patient Inst. Decision time for Depature: 21:16 Referrals: MARKELL OQUENDO JACQUELINE S DO (PCP/Family) Primary Care Physician Patient Instructions: Urinary Tract Infection, Adult (DC) Scripts Metoclopramide HCl (Reglan) 10 Mg Tablet 10 MG PO TID PRN for NAUSEA/VOMITING-1ST LINE, #10 TAB Prov: ARNAV DUMAS 09/28/21 Fluconazole (Diflucan) 150 Mg Tablet 150 MG PO DAILY, #1 TAB Prov: ARNAV DUMAS 09/28/21 Cephalexin (Cephalexin) 500 Mg Tablet 500 MG PO BID for 7 Days, #14 TAB Prov: ARNAV DUMAS 09/28/21 ARNAV DUMAS Sep 28, 2021 19:56
[2021-09-28] MEDS ORDERED: METOCLOPRAMIDE INJ 10 MG/2 ML (REGLAN) IVP ONE (20:00)
[2021-09-28 20:05] LABS: BACTERIA,URINE LARGE /HPF; WBC,URINE 25-50 /HPF; YEAST,URINE MODERATE /HPF
[2021-09-28 20:12] LABS: AMPHETAMINE SCREEN, URINE NEGATIVE (NEGATIVE); BARBITURATE SCREEN URINE NEGATIVE (NEGATIVE); BENZODIAZEPINES SCREEN URINE NEGATIVE (NEGATIVE); CANNABINOID SCREEN, URINE POSITIVE (NEGATIVE); COCAINE SCREEN URINE NEGATIVE (NEGATIVE); METHADONE STAT NEGATIVE (NEGATIVE); METHAMPHETAMINE SCREEN URINE S NEGATIVE (NEGATIVE); OPIATE SCREEN URINE NEGATIVE (NEGATIVE); OXYCODONE STAT NEGATIVE (NEGATIVE); PROPOXYPHENE STAT NEGATIVE (NEGATIVE); TRICYCLIC ANTIDEPRESSANTS SCRE NEGATIVE (NEGATIVE)
[2021-09-28 20:20] LABS: BASOPHILS # (AUTO) 0.1 10^3/uL (0.0-0.1); BASOPHILS % (AUTO) 1 % (0-10); EOSINOPHILS # (AUTO) 0.1 10^3/uL (0.0-0.3); EOSINOPHILS % (AUTO) 1 % (0-10); HEMATOCRIT 41 % (35-52); HEMOGLOBIN 14.5 g/dL (11.5-16.0); LYMPHOCYTES # (AUTO) 1.5 10^3/uL (1.0-4.0); LYMPHOCYTES % (AUTO) 17 % (12-44); MEAN CORPUSCULAR HEMOGLOBIN 33 pg (25-34); MEAN CORPUSCULAR HGB CONC 35 g/dL (32-36); MEAN CORPUSCULAR VOLUME 93 fL (80-99); MEAN PLATELET VOLUME 10.4 fL (9.0-12.2); MONOCYTES # (AUTO) 0.5 10^3/uL (0.0-1.0); MONOCYTES % (AUTO) 5 % (0-12); NEUTROPHILS # (AUTO) 6.5 10^3/uL (1.8-7.8); NEUTROPHILS % (AUTO) 75 % (42-75); PLATELET COUNT 269 10^3/uL (130-400); WHITE BLOOD COUNT 8.7 10^3/uL (4.3-11.0)
[2021-09-28] MEDS ORDERED: diphenhydrAMINE 50 MG/ML INJ (BENADRYL) IM ONE (20:30)
[2021-09-28 20:36] LABS: ALBUMIN 4.5 GM/DL (3.2-4.5); BILIRUBIN,TOTAL 1.7 MG/DL (0.1-1.0); CALCIUM 9.7 MG/DL (8.5-10.1); CREATININE SERUM 0.7 MG/DL (0.60-1.30); POTASSIUM 3.4 MMOL/L (3.6-5.0); TOTAL PROTEIN 7.5 GM/DL (6.4-8.2)
[2021-09-28] MEDS ORDERED: CEPH500T PO (21:18)
[2021-09-28] MEDS ORDERED: FLUC150T PO (21:18)
[2021-09-28] MEDS ORDERED: METO-310 PO (21:19)
[2021-09-28 21:31] VITALS: BP 112/77
== END 2021-09-28 21:31 | disposition home or self-care (01) ==
LOC: EDUNIT# 19:29 → ER 19:31
DX: O21.8 Other vomiting complicating pregnancy (principal); O23.41 Unspecified infection of urinary tract in pregnancy, first trimester; J45.909 Unspecified asthma, uncomplicated; F41.9 Anxiety disorder, unspecified; F32.9 Major depressive disorder, single episode, unspecified; Z3A.08 8 weeks gestation of pregnancy; Z87.891 Personal history of nicotine dependence; Z79.899 Other long term (current) drug therapy
CPT/HCPCS: 36415; 80053; 80306; 81000; 84702; 85025; 87088; 87210; 87491; 87591

== ENCOUNTER → 2021-12-25 | Outpatient (CLI) | payer BC ==
[~2021-12-25] MED LIST changes: +CEPH500T PO; +FLUC150T PO; +METO-310 PO
--- NOTE | 2021-12-25 17:22 | Diagnostic Imaging Report ---
INDICATION: Routine sonogram with anatomic survey. TECHNIQUE: Multiple real-time grayscale images were obtained over the gravid uterus. COMPARISON: None. FINDINGS: Single live intrauterine is identified. position is cephalic. heart rate is documented at 158 bpm. Total amniotic fluid was not objectively measured, but subjectively appears to be within normal limits. Placenta is posterior, not low-lying. Cervix is closed and measures 4.4 cm in length. Anatomic survey was performed. The intracranial structures, facial features and right ventricular outflow tract is suboptimally visualized/demonstrated. kidneys, bladder, stomach, four-chamber heart, three-vessel cord and cord insertion are adequately visualized and unremarkable. spine is grossly unremarkable as well. Biometrical measurements are as follows: Biparietal 4.62 cm, age 20 weeks 0 days. Head circumference 17.53 cm, age 20 weeks 1 days. Abdominal circumference 14.69 cm, age 20 weeks 0 days. Femur length 2.97 cm, age 19 weeks 2 days. Sonographic estimate age: 19 weeks 6 days. Sonographic estimated date of delivery: 05/15/2022. Clinical dates: 20 weeks and 1 day with estimated date of delivery of 05/13/2022. Estimated Weight: 305 gm (+/- 45 gm). LMP percentile: 21%. heart rate: 158 beats per minute. number: 1 of 1. IMPRESSION: 1. Single live intrauterine , as described above. Estimated gestational age is concordant with provided clinical dates. 2. Incomplete anatomic survey, as described above. Follow-up is advised. Dictated by: Dictated on workstation # [id number]
== END ==
LOC: RAD 13:00
PROVIDERS: ATTEND Obstetrics & Gynecology
DX: Z34.01 Encounter for supervision of normal first pregnancy, first trimester (principal)
CPT/HCPCS: 76805

== ENCOUNTER 2022-05-09 09:58 | Inpatient (IN) | payer BC, MEDICAID ==
[~2022-05-09] VITALS: Ht 164 cm; Wt 63.9 kg
[2022-05-09] VITALS (32 sets, daily range): BP systolic 98–147; BP diastolic 55–79
[2022-05-09] MEDS ORDERED: D5 LR IV SOLUTION 1,000 ML IV ONE (10:21)
[2022-05-09] MEDS ORDERED: PNV11TAB5 PO (10:56)
[2022-05-09] MEDS ORDERED: LIDOCAINE 1% INJ 20 ML VIAL IJ PRN (11:00)
[2022-05-09] MEDS ORDERED: D5 LR IV SOLUTION 1,000 ML IV SCH (11:00)
[2022-05-09] MEDS ORDERED: MINERAL OIL 30 ML UDC TOP PRN (11:00)
[2022-05-09 11:03] LABS: BASOPHILS % (AUTO) 0 % (0-10); EOSINOPHILS # (AUTO) 0.1 10^3/uL (0.0-0.3); EOSINOPHILS % (AUTO) 1 % (0-10); HEMATOCRIT 32 % (35-52); HEMOGLOBIN 10.5 g/dL (11.5-16.0); LYMPHOCYTES # (AUTO) 1.6 10^3/uL (1.0-4.0); LYMPHOCYTES % (AUTO) 15 % (12-44); MEAN CORPUSCULAR HEMOGLOBIN 29 pg (25-34); MEAN CORPUSCULAR HGB CONC 33 g/dL (32-36); MEAN CORPUSCULAR VOLUME 87 fL (80-99); MEAN PLATELET VOLUME 10.8 fL (9.0-12.2); MONOCYTES # (AUTO) 0.7 10^3/uL (0.0-1.0); MONOCYTES % (AUTO) 6 % (0-12); NEUTROPHILS # (AUTO) 8.2 10^3/uL (1.8-7.8); NEUTROPHILS % (AUTO) 76 % (42-75); PLATELET COUNT 201 10^3/uL (130-400); WHITE BLOOD COUNT 10.7 10^3/uL (4.3-11.0)
[2022-05-09] MEDS ORDERED: ACETAMINOPHEN 500 MG TAB (TYLENOL) PO PRN (11:30)
[2022-05-09] MEDS ORDERED: SERT25TA PO (11:30)
[2022-05-09] MEDS ORDERED: LIDOCAINE/EPI 2% 1:200,00 (XYLOCAINE) 10 ML VIAL INJ PRN (12:15)
--- NOTE | 2022-05-09 12:35 | History & Physical-OB/GYN ---
CAROL SCHAEFER 05/09/22 1235: OB - Chief Complaint & HPI Date/Time Date of Admission: Date of Admission: May 09, 2022 at 10:47 Date seen by a Provider: May 09, 2022 Time Seen by a Provider: 12:32 Chief Complaint/History OB-Reason for Admission/Chief: Onset of Labor Hx : 1 Hx Para: 0 Gestational Age in Weeks: 39 Gestational Age in Days: 3 Admission Nurse Assessment Rev: Yes History of Labs 22 yo female O positive Antibody neg RI RPR NR HBsAG NR HIV NR GC neg GBS Neg Allergies and Home Medications Allergies Coded Allergies: fentanyl (Verified Allergy, Mild, 01/22/15) itching hydrocodone (Unverified Allergy, Unknown, 05/25/15) morphine (Unverified Allergy, Unknown, 05/25/15) promethazine (Unverified Allergy, Unknown, 05/25/15) Patient Home Medication List Home Medication List Reviewed: Yes [id number]/FA/Omega3/Dha/Fish Oil ( Gummies) 400 Mcg-32.5 Mg (25 Mg-7.5 Mg) Tab.chew, 1 EACH PO, (Reported) Entered as Reported by: TIMOTHY LAMSA on 05/09/22 1056 Last Action: New Order Sertraline HCl (Zoloft) 25 Mg Tablet, 25 MG PO DAILY, (Reported) Entered as Reported by: DAX THORPE on 05/09/22 1130 Last Action: New Order Discontinued Medications Albuterol Sulfate (Proair Hfa) 1 Puff Puff, 2 PUFF IH Q4H Discontinued Reason: No Longer Taking Prescribed by: BRAYDON CAM on 07/19/192301 Last Action: Discontinued Azithromycin (Zithromax) 500 Mg Tablet, 500 MG PO DAILY Discontinued Reason: No Longer Taking Prescribed by: BRAYDON CAM on 07/19/192301 Last Action: Discontinued Cefdinir (Cefdinir) 300 Mg Capsule, 300 MG PO BID Discontinued Reason: No Longer Taking Prescribed by: BRAYDON CAM on 07/19/192301 Last Action: Discontinued Cephalexin (Cephalexin) 500 Mg Tablet, 500 MG PO BID Discontinued Reason: No Longer Taking Prescribed by: NAZARIO LARES on 09/28/212117 Last Action: Discontinued Citalopram Hydrobromide (Citalopram Hbr) 40 Mg Tablet, 40 MG PO DAILY, (Reported) Discontinued Reason: No Longer Taking Entered as Reported by: ROLANDA SMITH on 10/29/14 0756 Last Action: Discontinued Cyclobenzaprine HCl (Cyclobenzaprine HCl) 5 Mg Tablet, 5-10 MG PO Q8H Discontinued Reason: Duplicate Order Prescribed by: BRAYDON CAM on 07/19/192301 Last Action: Discontinued Fluconazole (Diflucan) 150 Mg Tablet, 150 MG PO DAILY Discontinued Reason: No Longer Taking Prescribed by: NAZARIO LARES on 09/28/212117 Last Action: Discontinued Methylprednisolone (Medrol) 4 Mg Tab.ds.pk, 4 MG PO UD Discontinued Reason: No Longer Taking Prescribed by: BRAYDON CAM on 07/19/192301 Last Action: Discontinued Metoclopramide HCl (Reglan) 10 Mg Tablet, 10 MG PO TID PRN for NAUSEA/VOMITING- 1ST LINE Discontinued Reason: No Longer Taking Prescribed by: NAZARIO LARES on 09/28/212118 Last Action: Discontinued OB - History Hx of Present Care: Yes Obstetrical Complications: None Medical Complications: None Obstetrical History Hx : 1 Hx Para: 0 Delivery History Hx Blood Disorders: No Adverse Rxn to Tranfusion: No Patient Past Medical History h/o cholestecomy Social History/Family History Alcohol Use: Denies Use Recreational Drug Use: Yes Smoking Cessation: Former smoker Significant Family Hx none Immunizations First/Initial COVID19 Vaccine: N/A Hepatitis A: Yes Hepatitis B: Yes Tetanus Booster (TDap): Less than 5yrs OB - Admission Exam Physical Exam Vitals: Vital Signs 05/09/22 10:10 Temp 36.9 Pulse 80 Resp 20 B/P (MAP) 119/75 (90) Pulse Ox 98 O2 Delivery Room Air HEENT: NCAT Abdomen: Gravid Extremities: Normal Reflexes: Normal Cervical Dilatation: 7cm Membranes: Ruptured Accelerations: No Accelerations Decelerations: No Decelerations Contractions on Admission: < 5 Minutes Apart Intensity: Moderate Labs Laboratory Tests Test 05/09/22 10:15 Range/Units White Blood Count 10.7 4.3-11.0 10^3/uL Red Blood Count 3.66 L 3.80-5.11 10^6/uL Hemoglobin 10.5 L 11.5-16.0 g/dL Hematocrit 32 L 35-52 % Mean Corpuscular Volume 87 80-99 fL Mean Corpuscular Hemoglobin 29 25-34 pg Mean Corpuscular Hemoglobin Concent 33 32-36 g/dL Red Cell Distribution Width 13.7 10.0-14.5 % Platelet Count 201 130-400 10^3/uL Mean Platelet Volume 10.8 9.0-12.2 fL Immature Granulocyte % (Auto) 1 % Neutrophils (%) (Auto) 76 H 42-75 % Lymphocytes (%) (Auto) 15 12-44 % Monocytes (%) (Auto) 6 0-12 % Eosinophils (%) (Auto) 1 0-10 % Basophils (%) (Auto) 0 0-10 % Neutrophils # (Auto) 8.2 H 1.8-7.8 10^3/uL Lymphocytes # (Auto) 1.6 1.0-4.0 10^3/uL Monocytes # (Auto) 0.7 0.0-1.0 10^3/uL Eosinophils # (Auto) 0.1 0.0-0.3 10^3/uL Basophils # (Auto) 0.0 0.0-0.1 10^3/uL Immature Granulocyte # (Auto) 0.1 0.0-0.1 10^3/uL OB - Assessment/Plan/Diagnosis Assessment Assessment: active labor Admission Dx Active Labor Admission Status: Inpatient Order (span 2 midnights) Reason for Inpatient Admission: Active Labor Plan Plan: Expectant Management Supervisory-Addendum Brief Verification & Attestation Participated in pt care: history Personally performed: history Care discussed with: Medical Student Procedures: n/a SAVAGE DOMINGO DO 05/09/22 1548: Allergies and Home Medications Allergies Coded Allergies: fentanyl (Verified Allergy, Mild, 01/22/15) itching hydrocodone (Unverified Allergy, Unknown, 05/25/15) morphine (Unverified Allergy, Unknown, 05/25/15) promethazine (Unverified Allergy, Unknown, 05/25/15) Patient Home Medication List [id number]/FA/Omega3/Dha/Fish Oil ( Gummies) 400 Mcg-32.5 Mg (25 Mg-7.5 Mg) Tab.chew, 1 EACH PO, (Reported) Entered as Reported by: TIMOTHY LAMAS on 05/09/22 1056 Last Action: New Order Sertraline HCl (Zoloft) 25 Mg Tablet, 25 MG PO DAILY, (Reported) Entered as Reported by: DAX THORPE on 05/09/22 1130 Last Action: New Order Discontinued Medications Albuterol Sulfate (Proair Hfa) 1 Puff Puff, 2 PUFF IH Q4H Discontinued Reason: No Longer Taking Prescribed by: BRAYDON CAM on 07/19/192301 Last Action: Discontinued Azithromycin (Zithromax) 500 Mg Tablet, 500 MG PO DAILY Discontinued Reason: No Longer Taking Prescribed by: BRAYDON CAM on 07/19/192301 Last Action: Discontinued Cefdinir (Cefdinir) 300 Mg Capsule, 300 MG PO BID Discontinued Reason: No Longer Taking Prescribed by: BRAYDON CAM on 07/19/192301 Last Action: Discontinued Cephalexin (Cephalexin) 500 Mg Tablet, 500 MG PO BID Discontinued Reason: No Longer Taking Prescribed by: NAZARIO LARES on 09/28/212117 Last Action: Discontinued Citalopram Hydrobromide (Citalopram Hbr) 40 Mg Tablet, 40 MG PO DAILY, (Reported) Discontinued Reason: No Longer Taking Entered as Reported by: ROLANDA SMITH on 10/29/14 0756 Last Action: Discontinued Cyclobenzaprine HCl (Cyclobenzaprine HCl) 5 Mg Tablet, 5-10 MG PO Q8H Discontinued Reason: Duplicate Order Prescribed by: BRAYDON CAM on 07/19/192301 Last Action: Discontinued Fluconazole (Diflucan) 150 Mg Tablet, 150 MG PO DAILY Discontinued Reason: No Longer Taking Prescribed by: NAZARIO LARES on 09/28/212117 Last Action: Discontinued Methylprednisolone (Medrol) 4 Mg Tab.ds.pk, 4 MG PO UD Discontinued Reason: No Longer Taking Prescribed by: BRAYDON CAM on 07/19/192301 Last Action: Discontinued Metoclopramide HCl (Reglan) 10 Mg Tablet, 10 MG PO TID PRN for NAUSEA/VOMITING- 1ST LINE Discontinued Reason: No Longer Taking Prescribed by: NAZARIO LARES on 09/28/212118 Last Action: Discontinued Supervisory-Addendum Brief Verification & Attestation Results interpretation: Verified all documentation Verification and Attestation of Medical Student E/M Service A medical student performed and documented this service in my presence. I reviewed and verified all information documented by the medical student and made modifications to such information, when appropriate. I personally performed the physical exam and medical decision making. Savage Domingo, May 09, 2022,15:47 CAROL SCHAEFER May 09, 2022 12:35 SAVAGE DOMINGO DO May 09, 2022 15:48
[2022-05-09] MEDS ORDERED: fentaNYL 2 mcg/ml BUPIVA 0.125 0 ML ONE (12:36)
[2022-05-09] MEDS ORDERED: ONDANSETRON 4 MG/2 ML (SDV) Z0FRAN IVP ONE (12:45)
[2022-05-09] MEDS ORDERED: LACTATED RINGERS 1,000 ML IV SCH (12:45)
--- NOTE | 2022-05-09 12:45 | History & Physical-OB ---
OB - Chief Complaint & HPI Date/Time Date of Admission: Date of Admission: May 09, 2022 at 10:47 Date seen by a Provider: May 09, 2022 Time Seen by a Provider: 12:45 Chief Complaint/History OB-Reason for Admission/Chief: Onset of Labor Hx : 1 Hx Para: 0 Expected Date of Delivery: May 13, 2022 Gestational Age in Weeks: 39 Gestational Age in Days: 3 Admission Nurse Assessment Rev: Yes History of Labs O pos Antibody neg RI RPR NR HBsAg NR HIV NR GC neg GBS neg Allergies and Home Medications Allergies Coded Allergies: fentanyl (Verified Allergy, Mild, 01/22/15) itching hydrocodone (Unverified Allergy, Unknown, 05/25/15) morphine (Unverified Allergy, Unknown, 05/25/15) promethazine (Unverified Allergy, Unknown, 05/25/15) Patient Home Medication List Home Medication List Reviewed: Yes Rlt025/FA/Omega3/Dha/Fish Oil ( Gummies) 400 Mcg-32.5 Mg (25 Mg-7.5 Mg) Tab.chew, 1 EACH PO, (Reported) Entered as Reported by: TIMOTHY LAMAS on 05/09/22 1056 Last Action: New Order Sertraline HCl (Zoloft) 25 Mg Tablet, 25 MG PO DAILY, (Reported) Entered as Reported by: DAX THORPE on 05/09/22 1130 Last Action: New Order Discontinued Medications Albuterol Sulfate (Proair Hfa) 1 Puff Puff, 2 PUFF IH Q4H Discontinued Reason: No Longer Taking Prescribed by: BRAYDON CAM on 07/19/192301 Last Action: Discontinued Azithromycin (Zithromax) 500 Mg Tablet, 500 MG PO DAILY Discontinued Reason: No Longer Taking Prescribed by: BRAYDON CAM on 07/19/192301 Last Action: Discontinued Cefdinir (Cefdinir) 300 Mg Capsule, 300 MG PO BID Discontinued Reason: No Longer Taking Prescribed by: BRAYDON CAM on 07/19/192301 Last Action: Discontinued Cephalexin (Cephalexin) 500 Mg Tablet, 500 MG PO BID Discontinued Reason: No Longer Taking Prescribed by: NAZARIO LARES on 09/28/212117 Last Action: Discontinued Citalopram Hydrobromide (Citalopram Hbr) 40 Mg Tablet, 40 MG PO DAILY, (Reported) Discontinued Reason: No Longer Taking Entered as Reported by: ROLANDA SMITH on 10/29/14 0756 Last Action: Discontinued Cyclobenzaprine HCl (Cyclobenzaprine HCl) 5 Mg Tablet, 5-10 MG PO Q8H Discontinued Reason: Duplicate Order Prescribed by: BRAYDON CAM on 07/19/192301 Last Action: Discontinued Fluconazole (Diflucan) 150 Mg Tablet, 150 MG PO DAILY Discontinued Reason: No Longer Taking Prescribed by: NAZARIO LARES on 09/28/212117 Last Action: Discontinued Methylprednisolone (Medrol) 4 Mg Tab.ds.pk, 4 MG PO UD Discontinued Reason: No Longer Taking Prescribed by: BRAYDON CAM on 07/19/192301 Last Action: Discontinued Metoclopramide HCl (Reglan) 10 Mg Tablet, 10 MG PO TID PRN for NAUSEA/VOMITING- 1ST LINE Discontinued Reason: No Longer Taking Prescribed by: NAZARIO LARES on 09/28/212118 Last Action: Discontinued OB - History Hx of Present Care: Yes Ultrasounds: Normal mid trimester US Obstetrical Complications: None Medical Complications: None Obstetrical History Hx : 1 Hx Para: 0 Delivery History Hx Blood Disorders: No Adverse Rxn to Tranfusion: No Patient Past Medical History NC Social History/Family History Alcohol Use: Denies Use Recreational Drug Use: Yes Smoking Cessation: Former smoker Immunizations First/Initial COVID19 Vaccine: N/A Hepatitis A: Yes Hepatitis B: Yes Tetanus Booster (TDap): Less than 5yrs OB - Admission Exam Physical Exam Vitals: Vital Signs 05/09/22 10:10 Temp 36.9 Pulse 80 Resp 20 B/P (MAP) 119/75 (90) Pulse Ox 98 O2 Delivery Room Air HEENT: NCAT Heart: Rhythm Normal Lungs: Clear Abdomen: Gravid Extremities: Normal Reflexes: Normal Cervical Dilatation: 5cm Effacement: 75% Station: -1 Membranes: Intact Heart Rate: 130's Accelerations: Accelerations Present Decelerations: No Decelerations Short Term Variability: Present Mcc Variability: Average (6-25) Contractions on Admission: < 5 Minutes Apart Intensity: Firm Labs Laboratory Tests Test 05/09/22 10:15 Range/Units White Blood Count 10.7 4.3-11.0 10^3/uL Red Blood Count 3.66 L 3.80-5.11 10^6/uL Hemoglobin 10.5 L 11.5-16.0 g/dL Hematocrit 32 L 35-52 % Mean Corpuscular Volume 87 80-99 fL Mean Corpuscular Hemoglobin 29 25-34 pg Mean Corpuscular Hemoglobin Concent 33 32-36 g/dL Red Cell Distribution Width 13.7 10.0-14.5 % Platelet Count 201 130-400 10^3/uL Mean Platelet Volume 10.8 9.0-12.2 fL Immature Granulocyte % (Auto) 1 % Neutrophils (%) (Auto) 76 H 42-75 % Lymphocytes (%) (Auto) 15 12-44 % Monocytes (%) (Auto) 6 0-12 % Eosinophils (%) (Auto) 1 0-10 % Basophils (%) (Auto) 0 0-10 % Neutrophils # (Auto) 8.2 H 1.8-7.8 10^3/uL Lymphocytes # (Auto) 1.6 1.0-4.0 10^3/uL Monocytes # (Auto) 0.7 0.0-1.0 10^3/uL Eosinophils # (Auto) 0.1 0.0-0.3 10^3/uL Basophils # (Auto) 0.0 0.0-0.1 10^3/uL Immature Granulocyte # (Auto) 0.1 0.0-0.1 10^3/uL OB - Assessment/Plan/Diagnosis Assessment Assessment: active labor Admission Dx 22 yo @ 39.3 Active labor GBS neg Admission Status: Inpatient Order (span 2 midnights) Reason for Inpatient Admission: 39 week Active labor Plan Plan: Expectant Management MARKELL OQUENDO DO May 09, 2022 12:45
[2022-05-09] MEDS ORDERED: CATHETER FLUSH 10 ML SYR IV SCH ×2 (14:00→22:00)
[2022-05-09] MEDS ORDERED: diphenhydrAMINE 50 MG/ML INJ (BENADRYL) ONE (14:40)
[2022-05-09] MEDS ORDERED: diphenhydrAMINE 50 MG/ML INJ (BENADRYL) IVP ONE (14:45)
[2022-05-09] MEDS ORDERED: OXYTOCIN PRE-MIX DRIP 500 ML IV ONE (15:10)
[2022-05-09] MEDS ORDERED: OXYTOCIN PRE-MIX DRIP 500 ML IV SCH ×2 (15:15→15:45)
--- NOTE | 2022-05-09 15:44 | OB Labor & Delivery Record ---
L&D History Date of Service Date of Service: May 09, 2022 History Expected Date of Delivery: May 13, 2022 Gestational Age in Weeks: 39 Hx : 1 Hx Para: 0 Complications Events: Routine care Operative Indications (Cesarea: N/A-Vaginal Delivery Intrapartal Events: None L&D Stage1 Stage One Onset of Labor - Date: May 09, 2022 Monitors and Tracing Monitor Mode: External Heart Rate: 150 Monitor Accelerations: Uniform Monitor Decelerations: Variable Station: -1 Senior Living Variability: Average (6-10) Short Term Variability: Present Presentation: Vertex Vital Signs VS - Last 72 Hours, by Label 05/09/22 05/09/22 05/09/22 05/09/22 10:10 10:15 11:00 11:30 Temp 36.9 36.9 Pulse 80 80 85 88 Resp 20 18 18 18 B/P (MAP) 119/75 (90) 117/79 (92) 122/73 (89) Pulse Ox 98 100 98 O2 Delivery Room Air Room Air Room Air 05/09/22 05/09/22 12:05 12:30 Temp 36.8 Pulse 86 83 Resp 18 18 B/P (MAP) 116/73 (87) 138/75 (96) Pulse Ox 100 100 O2 Delivery Room Air Room Air Signs of Distress by FHT Signs of Distress prolonged heart rate deceleration noted x 1, with recovery and good variability Rupture of Membranes Spontaneous Ruture of Membrane: No Amniotic Membrane Rupture Time: 12:40 Amniotic Membrane Fluid Desc.: Clear Vaginal Bleeding Description: Normal Show Progress/Notes Patient admitted in active labor. Arom performed after admission. Labor spinal done due to advanced dilatation. She progressed rapidly after to complete and 0 station. At which point patient began to have urge to push. L&D Stage2 Stage Two Stage II Date: May 09, 2022 Monitors and Tracing Monitor Mode: External Heart Rate: 150 Monitor Accelerations: Uniform Monitor Decelerations: Variable Genomics Scientist Variability: Average (6-10) Short Term Variability: Present Position: Right Occiput Anterior Presentation: Vertex Cord Descript/Complications Cord Vessel Description: 3 Vessels Complications Patient progressed vertex to +2 station, at which point heart rate no longer recovered to baseline. After little to no progression noted, due to distress, low vacuum extraction was done. Kiwi cup placed over flexion point on scalp. With next maternal push, RML performed, and 550 mmHg applied to kiwi hand piece. With gentle extension the head was delivered over RML w/ no extension. Vacuum then released and remainder of delivery was unremarkable. Delivery Type Infant Delivery Method: Low Vacuum Extraction Anterior Shoulder: Right Episiotomy/Perineal Laceration Episiotomy Description: Right Mediolateral Degree (describe repair) RML repaired using 3-0 and 2-0 vicryl suture in usual fashion. Condition of Infant Delivery 1 minute Comment: 8 5 minute Comment: 9 Notes Live female infant weight 7lbs 2 oz Condition of Condition of : Living Exam: No Observed Abnormalities Resuscitation Resuscitation: N/A - Spontaneous Resp L&D Stage3 Stage Three Stage III Date: May 09, 2022 Pictocin Pitocin Administration Comment: 30 mu wide open after delivery of placenta Placenta Delivery Placenta Delivery: Spontaneous Delivery Summary Summary Estimated blood loss (mL): 400 Attending at delivery: Markell Oquendo DO Condition of Delivery Examined: Cervix Examined, Uterus Explored Post Hemorrhage: No Condition of Mother stable Condition of Infant (s) stable MARKELL OQUENDO DO May 09, 2022 15:44
[2022-05-09] MEDS ORDERED: MEASLES,MUMPS,RUBELLA 1 EA INJ SC SCH (15:45)
[2022-05-09] MEDS ORDERED: TETANUS,DIPTH,PERTUSS P/F (BOOSTRIX) 0.5 ML VIAL IM SCH (15:45)
[2022-05-09] MEDS ORDERED: ONDANSETRON 4 MG/2 ML (SDV) Z0FRAN IVP PRN (15:45)
[2022-05-09] MEDS ORDERED: NALOXONE 0.4 MG/ML 1 ML (NARCAN) VIAL IV PRN (15:45)
--- NOTE | 2022-05-09 15:50 | Discharge Inst-Women's Service ---
Discharge Inst-Women's Serv Depart Medication/Instructions New, Converted or Re-Newed RX: Transmitted to Pharmacy Final Diagnosis PPD 1 VAVD Problems Reviewed?: Yes Consults/Follow Up Additional Follow Up: Yes Orders/Referrals Dr. Oquendo in 6 weeks Activity Activity: Activity as Tolerated Driving Instructions: No Driving for 1 Week NO SMOKING: NO SMOKING Nothing Inside Vagina: No Douching, No [place], No Tampons Diet Discharge Diet: No Restrictions Symptoms to Report to : Bleeding Excessive, Pain Increased, Fever Over 101 Degrees F, Vaginal Bleeding Increase, Questions/Concerns For Any Problems or Questions: Contact Your Physician MARKELL OQUENDO DO May 09, 2022 15:50
[2022-05-09] MEDS ORDERED: IBUP-844 PO (15:52)
[2022-05-09] MEDS ORDERED: DOCU100C37 PO (15:52)
[2022-05-09] MEDS ORDERED: IBUPROFEN 600 MG (MOTRIN) TAB PO ONE (15:56)
[2022-05-09] MEDS: IBUPROFEN 600 MG (MOTRIN) TAB PO SCH ×2 (16:16→20:57)
[2022-05-09] MEDS ORDERED: WITCH HAZEL(TUCKS) 40 EA JAR TOP PRN (16:30)
[2022-05-09] MEDS ORDERED: DIBUCAINE 1% OINTMENT 30 GM TUBE TOP PRN (16:30)
[2022-05-09] MEDS ORDERED: BENZOCAINE/MENTHOL (DERMOPLAST) 56 ML CAN TP PRN (16:30)
[2022-05-09] MEDS: ACETAMINOPHEN 500 MG TAB (TYLENOL) PO SCH ×2 (16:47→23:38)
[2022-05-09] MEDS: DOCUSATE SODIUM 100 MG (COLACE) CAP PO SCH (20:57)
[2022-05-10 03:15] VITALS: BP 116/70
[2022-05-10] MEDS: IBUPROFEN 600 MG (MOTRIN) TAB PO SCH ×4 (03:17→21:12)
[2022-05-10 06:05] LABS: BASOPHILS % (AUTO) 0 % (0-10); EOSINOPHILS # (AUTO) 0.1 10^3/uL (0.0-0.3); EOSINOPHILS % (AUTO) 0 % (0-10); HEMATOCRIT 23 % (35-52); HEMOGLOBIN 7.6 g/dL (11.5-16.0); LYMPHOCYTES # (AUTO) 2.2 10^3/uL (1.0-4.0); LYMPHOCYTES % (AUTO) 15 % (12-44); MEAN CORPUSCULAR HGB CONC 33 g/dL (32-36); MEAN CORPUSCULAR VOLUME 87 fL (80-99); MEAN PLATELET VOLUME 10.6 fL (9.0-12.2); MONOCYTES % (AUTO) 7 % (0-12); NEUTROPHILS # (AUTO) 11.3 10^3/uL (1.8-7.8); NEUTROPHILS % (AUTO) 77 % (42-75); PLATELET COUNT 173 10^3/uL (130-400); WHITE BLOOD COUNT 14.8 10^3/uL (4.3-11.0)
[2022-05-10 06:07] LABS: MEAN CORPUSCULAR HEMOGLOBIN 28 pg (25-34)
[2022-05-10] MEDS: ACETAMINOPHEN 500 MG TAB (TYLENOL) PO SCH ×3 (07:18→23:53)
[2022-05-10 07:25] VITALS: BP 109/58
--- NOTE | 2022-05-10 08:34 | Postpartum Progress Note ---
GODFREYKAYCE Claudia 05/10/22 0834: Note Note Day # 1 Subjective: Patient is without complaints. Ambulating, voiding. Tolerating a regular diet without nausea or vomiting. Normal lochia without clots and changes pad q1hr. Pain is well controlled with oral pain medications. Breast feeding wout complaints. Objective: VSS, Afebrile Physical Exam: General - Alert and oriented, no apparent distress Abdomen - Soft, appropriately tender to palpation, non-distended, fundus firm at umbilicus Extremities - no edema, negative Maria E's bilaterally Assessment: Post- anemia, Hgb 7.6 L, post- day # 1, status post vacuum- assisted vaginal delivery. Recovering well, hemodynamically stable Plan: Routine care. Encourage breast feeding. Encourage ambulation. Ferrous sulfate supplementation. D/C pending repeat labs in the am, return for follow up in [address] Oquendo Vitals - Labs Vital Signs - I&O Vital Signs Date Time Temp Pulse Resp B/P (MAP) Pulse Ox O2 Delivery O2 Flow Rate FiO2 05/10/22 07:25 36.8 68 18 109/58 (75) 98 Room Air 05/10/22 03:15 36.8 96 20 116/70 (85) 99 Room Air 05/09/22 23:36 36.6 67 16 99/61 (74) 98 Room Air 05/09/22 20:55 37.0 72 16 105/58 (74) 98 Room Air 05/09/22 17:00 74 18 114/75 (88) Room Air 05/09/22 16:45 74 18 112/73 (86) Room Air 05/09/22 16:30 73 18 110/68 (82) Room Air 05/09/22 16:15 88 18 111/65 (80) Room Air 05/09/22 16:00 37.0 75 18 113/75 (88) 98 Room Air 05/09/22 15:45 76 18 119/76 (90) Room Air 05/09/22 15:30 88 18 113/63 (80) Room Air 05/09/22 15:15 89 20 115/56 (75) Room Air 05/09/22 15:00 102 20 147/73 (97) Non Rebreather 15.00 05/09/22 14:45 88 18 129/73 (91) 100 Room Air 05/09/22 14:30 37.0 70 18 98/55 (69) 100 Room Air 05/09/22 14:27 78 18 100/56 (71) 100 Room Air 05/09/22 14:23 80 18 109/70 (83) 99 Room Air 05/09/22 14:18 91 18 134/73 (93) Room Air 05/09/22 14:11 75 18 110/65 (80) 100 Room Air 05/09/22 14:08 69 18 106/69 (81) 99 Room Air 05/09/22 14:01 85 18 105/75 (85) 100 Room Air 05/09/22 13:56 72 18 113/67 (82) 100 Room Air 05/09/22 13:51 70 18 111/70 (84) 100 Room Air 05/09/22 13:45 60 18 108/65 (79) 100 Room Air 05/09/22 13:43 70 18 102/67 (79) 100 Room Air 05/09/22 13:38 36.6 59 18 103/57 (72) Room Air 05/09/22 13:30 82 18 113/72 (86) Room Air 05/09/22 13:00 88 18 119/71 (87) Room Air 05/09/22 12:30 83 18 138/75 (96) 100 Room Air 05/09/22 12:07 100 Non Rebreather 15.00 05/09/22 12:05 36.8 86 18 116/73 (87) 100 Room Air 05/09/22 11:30 88 18 122/73 (89) 98 Room Air 05/09/22 11:00 85 18 117/79 (92) 05/09/22 10:15 36.9 80 18 100 Room Air 05/09/22 10:10 36.9 80 20 119/75 (90) 98 Room Air I & O 05/10/22 07:00 Intake Total 2800 ml Balance 2800 ml Labs Laboratory Tests 05/09/22 10:15: White Blood Count 10.7, Red Blood Count 3.66L, Hemoglobin 10.5L, Hematocrit 32L, Mean Corpuscular Volume 87, Mean Corpuscular Hemoglobin 29, Mean Corpuscular Hemoglobin Concent 33, Red Cell Distribution Width 13.7, Platelet Count 201, Mean Platelet Volume 10.8, Immature Granulocyte % (Auto) 1, Neutrophils (%) (Auto) 76H, Lymphocytes (%) (Auto) 15, Monocytes (%) (Auto) 6, Eosinophils (%) (Auto) 1, Basophils (%) (Auto) 0, Neutrophils # (Auto) 8.2H, Lymphocytes # (Auto) 1.6, Monocytes # (Auto) 0.7, Eosinophils # (Auto) 0.1, Basophils # (Auto) 0.0, Immature Granulocyte # (Auto) 0.1 05/10/22 05:50: White Blood Count 14.8H, Red Blood Count 2.67L, Hemoglobin 7.6#L, Hematocrit 23L , Mean Corpuscular Volume 87, Mean Corpuscular Hemoglobin 28, Mean Corpuscular Hemoglobin Concent 33, Red Cell Distribution Width 13.9, Platelet Count 173, Mean Platelet Volume 10.6, Immature Granulocyte % (Auto) 1, Neutrophils (%) (Auto) 77H, Lymphocytes (%) (Auto) 15, Monocytes (%) (Auto) 7, Eosinophils (%) (Auto) 0, Basophils (%) (Auto) 0, Neutrophils # (Auto) 11.3H, Lymphocytes # (Auto) 2.2, Monocytes # (Auto) 1.0, Eosinophils # (Auto) 0.1, Basophils # (Auto) 0.0, Immature Granulocyte # (Auto) 0.1 CHAYOSAVAGE 05/10/22 1128: Note Note Diagnosis: PPD 1 VAVD Acute blood loss anemia Verification and Attestation of Medical Student E/M Service A medical student performed and documented this service in my presence. I reviewed and verified all information documented by the medical student and made modifications to such information, when appropriate. I personally performed the physical exam and medical decision making. Savage Rodgers Chayo, May 10, 2022,11:28 Vitals - Labs Labs Laboratory Tests Test 05/10/22 05:50 Range/Units White Blood Count 14.8 H 4.3-11.0 10^3/uL Red Blood Count 2.67 L 3.80-5.11 10^6/uL Hemoglobin 7.6 #L 11.5-16.0 g/dL Hematocrit 23 L 35-52 % Mean Corpuscular Volume 87 80-99 fL Mean Corpuscular Hemoglobin 28 25-34 pg Mean Corpuscular Hemoglobin Concent 33 32-36 g/dL Red Cell Distribution Width 13.9 10.0-14.5 % Platelet Count 173 130-400 10^3/uL Mean Platelet Volume 10.6 9.0-12.2 fL Immature Granulocyte % (Auto) 1 % Neutrophils (%) (Auto) 77 H 42-75 % Lymphocytes (%) (Auto) 15 12-44 % Monocytes (%) (Auto) 7 0-12 % Eosinophils (%) (Auto) 0 0-10 % Basophils (%) (Auto) 0 0-10 % Neutrophils # (Auto) 11.3 H 1.8-7.8 10^3/uL Lymphocytes # (Auto) 2.2 1.0-4.0 10^3/uL Monocytes # (Auto) 1.0 0.0-1.0 10^3/uL Eosinophils # (Auto) 0.1 0.0-0.3 10^3/uL Basophils # (Auto) 0.0 0.0-0.1 10^3/uL Immature Granulocyte # (Auto) 0.1 0.0-0.1 10^3/uL KAYCE GODFREY May 10, 2022 08:34 SAVAGE OQUENDO DO May 10, 2022 11:28
[2022-05-10] MEDS: DOCUSATE SODIUM 100 MG (COLACE) CAP PO SCH ×2 (09:18→21:12)
[2022-05-10 12:15] VITALS: BP 110/62
[2022-05-10] MEDS ORDERED: IBUPROFEN 600 MG (MOTRIN) TAB PO SCH (15:45)
[2022-05-10 15:54] VITALS: BP 105/58
[2022-05-10 21:06] VITALS: BP 97/57
[2022-05-11 04:07] VITALS: BP 95/53
[2022-05-11] MEDS: IBUPROFEN 600 MG (MOTRIN) TAB PO SCH ×2 (04:08→10:57)
[2022-05-11] MEDS: DOCUSATE SODIUM 100 MG (COLACE) CAP PO SCH (07:31)
[2022-05-11] MEDS: ACETAMINOPHEN 500 MG TAB (TYLENOL) PO SCH (07:31)
--- NOTE | 2022-05-11 08:00 | Postpartum Progress Note ---
KAYCE GODFREY 05/11/22 0800: Note Note Day # 2 Subjective: Patient is without complaints. Ambulating, voiding. Tolerating a regular diet without nausea or vomiting. Normal lochia with less bleeding than day 1. Pain is well controlled with oral pain medications. Breast feeding normally without complaints. Objective: VSS, Afebrile Physical Exam: General - Alert and oriented, no apparent distress Abdomen - Soft, appropriately tender to palpation, non-distended, fundus firm at umbilicus Extremities - no edema, negative Maria E's bilaterally Assessment: Post- anemia, post- day # 2, status post vacuum-assisted vaginal delivery. Recovering well, hemodynamically stable Plan: Routine care. Encourage breast feeding. Encourage ambulation. Ferrous sulfate supplementation. Discharge pending on babies labs and oncology rep specialist. Follow up with Dr. Oquendo in 6 weeks Vitals - Labs Vital Signs - I&O Vital Signs Date Time Temp Pulse Resp B/P (MAP) Pulse Ox O2 Delivery O2 Flow Rate FiO2 05/11/22 04:07 36.6 66 14 95/53 (67) 98 Room Air 05/10/22 21:10 Room Air 05/10/22 21:06 36.7 80 18 97/57 (70) 98 Room Air 05/10/22 15:54 36.6 75 16 105/58 (74) 99 Room Air 05/10/22 12:15 36.8 70 18 110/62 (78) 99 Room Air MARKELL OQUENDO DO 05/11/22 0836: Note Note Verification and Attestation of Medical Student E/M Service A medical student performed and documented this service in my presence. I reviewed and verified all information documented by the medical student and made modifications to such information, when appropriate. I personally performed the physical exam and medical decision making. Markell Oquendo, May 11, 2022,08:36 KAYCE GODFREY May 11, 2022 08:00 MARKELL OQUENDO DO May 11, 2022 08:36
[2022-05-11 08:45] VITALS: BP 106/64
[2022-05-11] MEDS ORDERED: FERR325T18 PO (08:47)
[2022-05-11 11:15] VITALS: BP 106/64
--- NOTE | 2022-05-13 10:06 | Anesthesia-Regional Post-Op ---
Regional Patient Condition Mental Status: Alert, Oriented x3 Circulation: Same as Pre-Op Headache: Absent Sensation: Full Recovery Motor Block: Absent Post Op Complications Complications None Follow Up Care/Instructions Patient Instructions None needed. Anesthesia/Patient Condition Patient is doing well, no complaints, stable vital signs, no apparent adverse anesthesia problems. No complications reported per nursing. PAVITHRA ALLISON CRNA May 13, 2022 10:06
== END 2022-05-11 11:35 | disposition home or self-care (01) | DRG 806 ==
LOC: WSo 09:58 → LDRP 09:58 → WSo 10:47 → LDRP 10:47
PROVIDERS: ADMIT Obstetrics & Gynecology; ATTEND Obstetrics & Gynecology
PROC: 10D07Z6 Extraction of Products of Conception, Vacuum, Via Natural or Artificial Opening (ICD-10-PCS; principal; 2022-05-09)
PROC: 10907ZC Drainage of Amniotic Fluid, Therapeutic from Products of Conception, Via Natural or Artificial Opening (ICD-10-PCS; 2022-05-09)
PROC: 0W8NXZZ Division of Female Perineum, External Approach (ICD-10-PCS; 2022-05-09)
DX: O76 Abnormality in fetal heart rate and rhythm complicating labor and delivery (principal); D62 Acute posthemorrhagic anemia; Z37.0 Single live birth; Z3A.39 39 weeks gestation of pregnancy; Z87.891 Personal history of nicotine dependence; O90.81 Anemia of the puerperium
CPT/HCPCS: 36415; 85025; 86850; 86900; 86901; 99212

== ENCOUNTER 2022-05-15 08:40 | Emergency (ER) | payer BC, MEDICAID ==
[~2022-05-15] VITALS: Ht 165.1 cm; Wt 58.9 kg
[~2022-05-15 08:40] MED LIST changes: +DOCU100C37 PO; +FERR325T18 PO; +IBUP-844 PO; +PNV11TAB5 PO; +SERT25TA PO
[2022-05-15] MEDS ORDERED: KETOROLAC 30 MG/ML VIAL IM ONE (10:45)
[2022-05-15] MEDS ORDERED: LIDOCAINE/EPI 2% 1:200,00 (XYLOCAINE) 10 ML VIAL ONE ×2 (12:01→12:39)
[2022-05-15] MEDS ORDERED: diphenhydrAMINE 25 MG TAB (BENADRYL) PO ONE (12:15)
[2022-05-15] MEDS ORDERED: BENZOCAINE/MENTHOL (DERMOPLAST) 56 ML CAN TP PRN (13:00)
--- NOTE | 2022-05-15 13:44 | Consultation ---
History of Present Illness History of Present Illness Patient Consulted On(boris/time) 05/15/22 13:38 Date Seen by Provider: May 15, 2022 Time Seen by Provider: 11:30 Reason for Visit: PERINEAL PAIN History of Present Illness Amelia De Leon is a 22 yo , s/p vacuum assisted vaginal delivery on 05/09/22, who presented to the ED for worsening perineal pain x 48 hours. Her delivery was also complicated by need for creation of a right mediolateral episiotomy for delivery of the head. Patient reports that her pain regimen since delivery has been Tylenol and Ibuprofen, with reasonable pain relief. However, pain has become more severe and worsened in the past 24 hours. She reports increased pain with walking and sitting. She denies any fevers, chills, nausea, vomiting, foul odor, or obvious drainage. Vaginal bleeding has been steady since delivery, and she has continued to change her pad about every 2-3 hours. She has been taking Colace, and bowel movements have been soft to liquid without straining She denies CP, SOB, palpitations, CULLEN, vision abnormalities. Allergies and Home Medications Allergies Coded Allergies: fentanyl (Verified Allergy, Mild, 01/22/15) itching hydrocodone (Unverified Allergy, Unknown, 05/25/15) morphine (Unverified Allergy, Unknown, 05/25/15) promethazine (Unverified Allergy, Unknown, 05/25/15) Patient Home Medication List Home Medication List Reviewed: Yes Docusate Sodium (Docusate Sodium) 100 Mg Capsule, 100 MG PO BID PRN for CONSTIPATION-1ST LINE Prescribed by: MARKELL DOMINGO on 05/09/22 1552 Ferrous Sulfate (Ferrous Sulfate) 325 Mg (65 Mg Iron) Tablet, 325 MG PO BID Prescribed by: MARKELL DOMINGO on 05/11/22 0847 Ibuprofen (Ibu) 600 Mg Tablet, 600 MG PO Q6H Prescribed by: MARKELL DOMINGO on 05/09/22 1552 Hcj903/FA/Omega3/Dha/Fish Oil ( Gummies) 400 Mcg-32.5 Mg (25 Mg-7.5 Mg) Tab.chew, 1 EACH PO, (Reported) Entered as Reported by: TIMOTHY LAMAS on 05/09/22 1056 Sertraline HCl (Zoloft) 25 Mg Tablet, 25 MG PO DAILY, (Reported) Entered as Reported by: DAX THORPE on 05/09/22 1130 Discontinued Medications Albuterol Sulfate (Proair Hfa) 1 Puff Puff, 2 PUFF IH Q4H Discontinued Reason: No Longer Taking Prescribed by: BRAYDON CAM on 07/19/192301 Azithromycin (Zithromax) 500 Mg Tablet, 500 MG PO DAILY Discontinued Reason: No Longer Taking Prescribed by: BRAYDON CAM on 07/19/192301 Cefdinir (Cefdinir) 300 Mg Capsule, 300 MG PO BID Discontinued Reason: No Longer Taking Prescribed by: BRAYDON CAM on 07/19/192301 Cephalexin (Cephalexin) 500 Mg Tablet, 500 MG PO BID Discontinued Reason: No Longer Taking Prescribed by: NAZARIO LARES on 09/28/212117 Citalopram Hydrobromide (Citalopram Hbr) 40 Mg Tablet, 40 MG PO DAILY, (Reported) Discontinued Reason: No Longer Taking Entered as Reported by: ROLANDA SMITH on 10/29/14 0756 Cyclobenzaprine HCl (Cyclobenzaprine HCl) 5 Mg Tablet, 5-10 MG PO Q8H Discontinued Reason: Duplicate Order Prescribed by: BRAYDON CAM on 07/19/192301 Fluconazole (Diflucan) 150 Mg Tablet, 150 MG PO DAILY Discontinued Reason: No Longer Taking Prescribed by: NAZARIO LARES on 09/28/212117 Methylprednisolone (Medrol) 4 Mg Tab.ds.pk, 4 MG PO UD Discontinued Reason: No Longer Taking Prescribed by: BRAYDON CAM on 07/19/192301 Metoclopramide HCl (Reglan) 10 Mg Tablet, 10 MG PO TID PRN for NAUSEA/VOMITING- 1ST LINE Discontinued Reason: No Longer Taking Prescribed by: NAZARIO LARES on 09/28/212118 Past Pefndwo-Rihhmq-Xkzfcx Hx Patient Social History Tobacco Use?: No Substance use?: No Alcohol Use?: No Immunizations Up To Date Tetanus Booster (TDap): Less than 5yrs PED Vaccines UTD: Yes Influenza Vaccine Up-to-Date: No; Not Current First/Initial COVID19 Vaccinat: N/A Second COVID19 Vaccination Boris: N/A Third COVID19 Vaccination Date: N/A Seasonal Allergies Seasonal Allergies: Yes Past Medical History Surgery/Hospitalization HX: previous gallbladder removal Surgeries: Yes (EGD; NODULE ON NECK REMOVED; LAP CHOLECYSTECTOMY) Gallbladder, Orthopedic, Tonsillectomy Respiratory: Yes Asthma Currently Using CPAP: No Currently Using BIPAP: No Cardiac: No Neurological: Yes Female Reproductive Disorders: Menstrual Problems Sexually Transmitted Disease: No Genitourinary: Yes UTI-Chronic Gastrointestinal: Yes Gall Bladder Disease Musculoskeletal: Yes Back Injury Endocrine: No HEENT: No Cancer: No Psychosocial: Yes Anxiety, Depression Integumentary: No Blood Disorders: No Adverse Reaction/Blood Tranf: No Family Medical History Arthritis 19 MOTHER, Onset:Unknown Cervical cancer maternal grandmother, Onset:Unknown Completed stroke maternal grandmother, Onset:Unknown FH: breast cancer maternal grandmother, Onset:Unknown FH: lung cancer paternal grandfather, Onset:Unknown Kidney stone 19 MOTHER, Onset:Unknown Myocardial infarction maternal grandfather, Onset:Unknown UTI (urinary tract infection) 19 MOTHER, Onset:Unknown maternal grandmother, Onset:Unknown Review of Systems-General Genitourinary: pain (perineal) Physical Exam-General Problems Physical Exam Vital Signs Vital Signs - First Documented 05/15/22 09:00 Temp 36.6 Pulse 77 Resp 14 B/P (MAP) 112/74 (87) Pulse Ox 99 O2 Delivery Room Air Capillary Refill : Less Than 3 Seconds General Appearance: no apparent distress HEENT: PERRL/EOMI Respiratory: normal breath sounds, no respiratory distress, no accessory muscle use Cardiovascular: other (normal rate and peripheral perfusion) Rectal: deferred Genital/Rectal: other (complete separation of episiotomy repair noted. Otherwise healthy appearace of the vaginal tissue without obvious swelling/hematoma. Mild edema and induration at the perineum noted with mild tenderness to palpation. No erythema, drainage, or crepitus of surrounding tissue was noted. Appropriate tenderness at site with exam. ) Extremities: normal range of motion Neurologic/Psychiatric: no motor/sensory deficits, alert, normal mood/affect, oriented x 3 Skin: normal color, warm/dry Assessment/Plan Assessment/Plan Admission Diagnosis/Plan Assessment: 22 yo , who is 6 days s/p vacuum assisted vaginal del arianne, who presents with perineal pain and separation of episiotomy repair. No evidence of infection or hematoma on perineal exam Plan: - The separation at the episiotomy site was further opened by removing visible sutures. The area was washed with normal saline. - The episiotomy was repaired, under local anesthesia (2% lidocaine with epi) in usual fashion using a 2-0 vicryl suture. - Plan for outpatient pain management discussed with patient: Tylenol 100mg q 6h, Ibuprofen 600mg q 6 hour (staggered with Tylenol), Flexeril PRN, Lidocaine cream/Dermoplast spray to perineum, prophylactic abx with Bactrim DS 1 tab BID x 14 days. Prescriptions discussed with ED provider, and to be sent with patient. Patient is allergic to all narcotics. Reports Hives with narcotic use. - Per patient, she has a follow-up appointment with Dr. Domingo in clinic on 05/18/22, and patient instructed to keep appointment - Return precautions discussed with patient: worsening/uncontrolled pain, fevers, chills, intractable nausea/vomiting, CP, SOB, or other concerns. Admission Status: Other (ED consult) TIM BERNAL MD May 15, 2022 13:44
[2022-05-15] MEDS ORDERED: SULF1TAB38 PO (14:42)
[2022-05-15] MEDS ORDERED: CYCL10TA25 PO (14:42)
[2022-05-15] MEDS ORDERED: LIDO28.35 TP (14:42)
--- NOTE | 2022-05-15 14:43 | ED GU-Female ---
General Chief Complaint: - Reproductive Stated Complaint: VAG PAIN Nursing Triage Note: PT AMB TO [facility] WITH FATHER AND BABY. PT STATED THAT SHE HAD A VAGINAL ON TUESDAY WITH AN EPISIOTOMY. PT STATED THAT SHE DEVELOPED A HEMATOMA AND HAS HAD SEVERE PAIN FOR THE LAST 48 HRS. Source: patient Exam Limitations: no limitations History of Present Illness Date Seen by Provider: May 15, 2022 Allergies and Home Medications Allergies Coded Allergies: fentanyl (Verified Allergy, Mild, 01/22/15) itching hydrocodone (Unverified Allergy, Unknown, 05/25/15) morphine (Unverified Allergy, Unknown, 05/25/15) promethazine (Unverified Allergy, Unknown, 05/25/15) Patient Home Medication List Docusate Sodium (Docusate Sodium) 100 Mg Capsule, 100 MG PO BID PRN for TANYA GUNTER-1ST LINE Prescribed by: MARKELL OQUENDO on 05/09/22 1552 Ferrous Sulfate (Ferrous Sulfate) 325 Mg (65 Mg Iron) Tablet, 325 MG PO BID Prescribed by: MARKELL OQUENDO on 05/11/22 0847 Ibuprofen (Ibu) 600 Mg Tablet, 600 MG PO Q6H Prescribed by: MARKELL OQUENDO on 05/09/22 1552 Ibg038/FA/Omega3/Dha/Fish Oil ( Gummies) 400 Mcg-32.5 Mg (25 Mg-7.5 Mg) Tab.chew, 1 EACH PO, (Reported) Entered as Reported by: TIMOTHY LAMAS on 05/09/22 1056 Sertraline HCl (Zoloft) 25 Mg Tablet, 25 MG PO DAILY, (Reported) Entered as Reported by: DAX THORPE on 05/09/22 1130 Discontinued Medications Albuterol Sulfate (Proair Hfa) 1 Puff Puff, 2 PUFF IH Q4H Discontinued Reason: No Longer Taking Prescribed by: BRAYDON CAM on 07/19/192301 Azithromycin (Zithromax) 500 Mg Tablet, 500 MG PO DAILY Discontinued Reason: No Longer Taking Prescribed by: BRAYDON CAM on 07/19/192301 Cefdinir (Cefdinir) 300 Mg Capsule, 300 MG PO BID Discontinued Reason: No Longer Taking Prescribed by: BRAYDON CAM on 07/19/192301 Cephalexin (Cephalexin) 500 Mg Tablet, 500 MG PO BID Discontinued Reason: No Longer Taking Prescribed by: NAZARIO LARES on 09/28/212117 Citalopram Hydrobromide (Citalopram Hbr) 40 Mg Tablet, 40 MG PO DAILY, (Reported) Discontinued Reason: No Longer Taking Entered as Reported by: ROLANDA SMITH on 10/29/14 0756 Cyclobenzaprine HCl (Cyclobenzaprine HCl) 5 Mg Tablet, 5-10 MG PO Q8H Discontinued Reason: Duplicate Order Prescribed by: BRAYDON CAM on 07/19/192301 Fluconazole (Diflucan) 150 Mg Tablet, 150 MG PO DAILY Discontinued Reason: No Longer Taking Prescribed by: NAZARIO LARES on 09/28/212117 Methylprednisolone (Medrol) 4 Mg Tab.ds.pk, 4 MG PO UD Discontinued Reason: No Longer Taking Prescribed by: BRAYDON CAM on 07/19/192301 Metoclopramide HCl (Reglan) 10 Mg Tablet, 10 MG PO TID PRN for NAUSEA/VOMITING- 1ST LINE Discontinued Reason: No Longer Taking Prescribed by: NAZARIO LARES on 09/28/212118 Past Pdjxqnv-Bumfio-Qmguuz Hx Patient Social History Tobacco Use?: No Substance use?: No Alcohol Use?: No Immunizations Up To Date Tetanus Booster (TDap): Less than 5yrs PED Vaccines UTD: Yes Influenza Vaccine Up-to-Date: No; Not Current First/Initial COVID19 Vaccinat: N/A Second COVID19 Vaccination Boris: N/A Third COVID19 Vaccination Date: N/A Seasonal Allergies Seasonal Allergies: Yes Past Medical History Surgery/Hospitalization HX: previous gallbladder removal Surgeries: Yes (EGD; NODULE ON NECK REMOVED; LAP CHOLECYSTECTOMY) Gallbladder, Orthopedic, Tonsillectomy Respiratory: Yes Asthma Currently Using CPAP: No Currently Using BIPAP: No Cardiac: No Neurological: Yes Female Reproductive Disorders: Menstrual Problems Sexually Transmitted Disease: No Genitourinary: Yes UTI-Chronic Gastrointestinal: Yes Gall Bladder Disease Musculoskeletal: Yes Back Injury Endocrine: No HEENT: No Cancer: No Psychosocial: Yes Anxiety, Depression Integumentary: No Blood Disorders: No Adverse Reaction/Blood Tranf: No Family Medical History Arthritis 19 MOTHER, Onset:Unknown Cervical cancer maternal grandmother, Onset:Unknown Completed stroke maternal grandmother, Onset:Unknown FH: breast cancer maternal grandmother, Onset:Unknown FH: lung cancer paternal grandfather, Onset:Unknown Kidney stone 19 MOTHER, Onset:Unknown Myocardial infarction maternal grandfather, Onset:Unknown UTI (urinary tract infection) 19 MOTHER, Onset:Unknown maternal grandmother, Onset:Unknown Physical Exam Vital Signs Vital Signs - First Documented 05/15/22 09:00 Temp 36.6 Pulse 77 Resp 14 B/P (MAP) 112/74 (87) Pulse Ox 99 O2 Delivery Room Air Capillary Refill : Less Than 3 Seconds Height, Weight, BMI Height: 5'5.00" Weight: 114lbs. 3.2oz. [id number]; 21.00 BMI Method:Stated Progress/Results/Core Measures Suspected Sepsis SIRS Temperature: Pulse: 77 Respiratory Rate: 14 Blood Pressure 112 /74 Mean: 87 Results/Orders My Orders Orders - MARSHALL GIBBS MD Ketorolac Injection (Toradol Injection) (05/15/22 10:45) Lidocaine/Epi Mpf 2% 1:200,000 (Xylocain (05/15/22 12:01) Diphenhydramine Tablet (Benadryl Tablet) (05/15/22 12:15) Lidocaine/Epi Mpf 2% 1:200,000 (Xylocain (05/15/22 12:39) Benzocaine/Menthol Topical Spr (Dermopla (05/15/22 13:00) Sulfamethoxazole/Trimet Ds Tab (Bactrim (05/15/22 14:45) Medications Given in ED Current Medications Medications Dose Ordered Sig/Dean Route Start Time Stop Time Status Last Admin Dose Admin Benzocaine/Menthol 1 ea TID PRN TP 05/15/22 13:00 05/15/22 13:07 1 EA Diphenhydramine HCl 25 mg STK-MED ONCE PO 05/15/22 12:15 05/15/22 12:18 DC 05/15/22 12:15 25 MG Ketorolac Tromethamine 30 mg ONCE ONCE IM 05/15/22 10:45 05/15/22 10:46 DC 05/15/22 10:48 30 MG Lidocaine/ Epinephrine 10 ml STK-MED ONCE .ROUTE 05/15/22 12:01 05/15/22 12:06 DC 05/15/22 12:00 10 ML Lidocaine/ Epinephrine 10 ml STK-MED ONCE .ROUTE 05/15/22 12:39 05/15/22 12:42 DC 05/15/22 13:07 10 ML Vital Signs/I&O 05/15/22 09:00 Temp 36.6 Pulse 77 Resp 14 B/P (MAP) 112/74 (87) Pulse Ox 99 O2 Delivery Room Air Capillary Refill : Less Than 3 Seconds Blood Pressure Mean: 87 Departure Impression Primary Impression: episiotomy dehiscence Additional Impression: Perineal pain Disposition: HOME, SELF-CARE Condition: Improved Departure-Patient Inst. Decision time for Depature: 14:38 Referrals: LAILA PALENCIA DO (PCP/Family) Primary Care Physician Patient Instructions: Episiotomy Add. Discharge Instructions: Keep your appointment with Dr. OQUENDO on Tuesday. Complete your antibiotic as prescribed. Use Tylenol (acetaminophen) up to 1000 mg every 6 hours as needed and/or ibuprofen up to 600 mg every 6 hours as needed for pain. You may also add cyclobenzaprine as prescribed for additional pain relief. This is a muscle relaxer and may cause drowsiness. Use with caution. You may also use the topical lidocaine cream to numb up the sore area. Return to care if you have worsening symptoms despite following these instructions. All discharge instructions reviewed with patient and/or family. Voiced understanding. Scripts Cyclobenzaprine HCl (Cyclobenzaprine HCl) 10 Mg Tablet 10 MG PO Q8H PRN for PAIN-BREAKTHROUGH, #20 TAB Prov: MARSHALL GIBBS MD 05/15/22 Lidocaine HCl (Lidocaine HCl) 3 % Cream..g. 28.35 GM TP Q4H PRN for PAIN-BREAKTHROUGH, #1 EA Prov: MARSHALL GIBBS MD 05/15/22 Sulfamethoxazole/Trimethoprim (Bactrim Ds Tablet) 1 Each Tablet 1 EACH PO BID, #28 TAB Prov: MARSHALL GIBBS MD 05/15/22 Copy Copies To 1: MARKELL OQUENDO JOSHUA T MD May 15, 2022 14:43
[2022-05-15] MEDS ORDERED: TRIM/SULFAMETH 160/800 (SEPTRA DS) TAB PO ONE (14:45)
[2022-05-15 14:56] VITALS: BP 128/85
== END 2022-05-15 14:56 | disposition home or self-care (01) ==
LOC: EDUNIT# 08:40 → ER 08:45
DX: O90.1 Disruption of perineal obstetric wound (principal); Z28.310 Unvaccinated for COVID-19

== ENCOUNTER 2022-05-22 06:10 | Emergency (ER) | payer BC, MEDICAID ==
[~2022-05-22] VITALS: Ht 165 cm; Wt 60.7 kg
[~2022-05-22 06:10] MED LIST changes: +CYCL10TA25 PO; +LIDO28.35 TP
--- NOTE | 2022-05-22 06:25 | ED GU-Female ---
General Stated Complaint: 2 WKS ,"SEVERE BLEEDING",HAD EPISIOTOMY Source: patient Exam Limitations: no limitations History of Present Illness Date Seen by Provider: May 22, 2022 Time Seen by Provider: 06:19 Initial Comments Patient is a 22-year-old female status postnormal spontaneous vaginal delivery at term 2 weeks ago who presents to the emergency department with a chief complaint of vaginal bleeding. Patient states that she woke up approximately an hour prior to arrival to get up, go to the bathroom and breast-feed her when she noted onset of spontaneous bright red vaginal bleeding. Patient had an episiotomy at delivery and subsequently a week ago on Tuesday had a repair here in the ER by Dr. Trent. She states that she had "a lot" of bleeding no real significant increase in pain. She has been taking antibiotics to help prevent i nfection. She is on stool softeners. She has not required the use of ibuprofen very often no chronic medical conditions. She states she was told that the sutures for her episiotomy site were dissolving faster than her body was able to heal. Patient was very concerned with the amount of bleeding at home and states she had multiple clots at her vagina. No recent illnesses, no fevers, chills. No burning with urination. She has been having soft normal bowel movements and not straining she states. All other review of systems reviewed and negative except as stated. Timing/Duration: just prior to arrival (1h) Severity/Quality: moderate Location: vaginal Activities at Onset: none (walking) Associated Symptoms: denies symptoms Allergies and Home Medications Allergies Coded Allergies: fentanyl (Verified Allergy, Mild, 01/22/15) itching hydrocodone (Unverified Allergy, Unknown, 05/25/15) morphine (Unverified Allergy, Unknown, 05/25/15) promethazine (Unverified Allergy, Unknown, 05/25/15) Patient Home Medication List Home Medication List Reviewed: Yes Cyclobenzaprine HCl (Cyclobenzaprine HCl) 10 Mg Tablet, 10 MG PO Q8H PRN for PAIN-BREAKTHROUGH Prescribed by: MARSHALL SALOMON on 05/15/22 1442 Docusate Sodium (Docusate Sodium) 100 Mg Capsule, 100 MG PO BID PRN for CONSTIPATION-1ST LINE Prescribed by: MARKELL DOMINGO on 05/09/22 1552 Ferrous Sulfate (Ferrous Sulfate) 325 Mg (65 Mg Iron) Tablet, 325 MG PO BID Prescribed by: MARKELL DOMINGO on 05/11/22 0847 Ibuprofen (Ibu) 600 Mg Tablet, 600 MG PO Q6H Prescribed by: MARKELL DOMINGO on 05/09/22 1552 Lidocaine HCl (Lidocaine HCl) 3 % Cream..g., 28.35 GM TP Q4H PRN for PAIN- BREAKTHROUGH Prescribed by: MARSHALL SALOMON on 05/15/22 1442 Qpm196/FA/Omega3/Dha/Fish Oil ( Gummies) 400 Mcg-32.5 Mg (25 Mg-7.5 Mg) Tab.chew, 1 EACH PO, (Reported) Entered as Reported by: TIMOTHY LAMAS on 05/09/22 1056 Sertraline HCl (Zoloft) 25 Mg Tablet, 25 MG PO DAILY, (Reported) Entered as Reported by: DAX THORPE on 05/09/22 1130 Sulfamethoxazole/Trimethoprim (Bactrim Ds Tablet) 1 Each Tablet, 1 EACH PO BID Prescribed by: MARSHALL SALOMON on 05/15/22 1442 Review of Systems Review of Systems Constitutional: see HPI EENTM: no symptoms reported Respiratory: no symptoms reported Cardiovascular: no symptoms reported Gastrointestinal: no symptoms reported Genitourinary: other (vaginal bleeding) : No Musculoskeletal: no symptoms reported All Other Systemes Reviewed Negative Unless Noted: Yes Past Lhzjegx-Zavlwx-Skckkr Hx Immunizations Up To Date Tetanus Booster (TDap): Less than 5yrs PED Vaccines UTD: Yes First/Initial COVID19 Vaccinat: N/A Second COVID19 Vaccination Boris: N/A Third COVID19 Vaccination Date: N/A Seasonal Allergies Seasonal Allergies: Yes Past Medical History Surgery/Hospitalization HX: previous gallbladder removal Surgeries: Yes (EGD; NODULE ON NECK REMOVED; LAP CHOLECYSTECTOMY) Gallbladder, Orthopedic, Tonsillectomy Respiratory: Yes Asthma Currently Using CPAP: No Currently Using BIPAP: No Cardiac: No Neurological: Yes Female Reproductive Disorders: Menstrual Problems Sexually Transmitted Disease: No Genitourinary: Yes UTI-Chronic Gastrointestinal: Yes Gall Bladder Disease Musculoskeletal: Yes Back Injury Endocrine: No HEENT: No Cancer: No Psychosocial: Yes Anxiety, Depression Integumentary: No Blood Disorders: No Adverse Reaction/Blood Tranf: No Family Medical History Arthritis 19 MOTHER, Onset:Unknown Cervical cancer maternal grandmother, Onset:Unknown Completed stroke maternal grandmother, Onset:Unknown FH: breast cancer maternal grandmother, Onset:Unknown FH: lung cancer paternal grandfather, Onset:Unknown Kidney stone 19 MOTHER, Onset:Unknown Myocardial infarction maternal grandfather, Onset:Unknown UTI (urinary tract infection) 19 MOTHER, Onset:Unknown maternal grandmother, Onset:Unknown Physical Exam Vital Signs Vital Signs - First Documented 05/22/22 06:20 Temp 36.4 Pulse 67 Resp 20 B/P (MAP) 126/98 (107) Pulse Ox 99 O2 Delivery Room Air Capillary Refill : Height, Weight, BMI Height: 5'5.00" Weight: 114lbs. 3.2oz. 51.455684xs; 21.00 BMI Method:Stated General Appearance: WD/WN, mild distress (tearful) HEENT: normal ENT inspection Neck: full range of motion Cardiovascular: regular rate, rhythm Respiratory: lungs clear, normal breath sounds, no respiratory distress, no accessory muscle use Gastrointestinal: non tender, soft Pelvic: other (Patient has completely dehisced episiotomy site to the right of the introitus 3.5cm in length into the vaginal vault; no active bleeing is appreciated. swelling of the vulva/perineum) Extremities: normal range of motion, normal inspection, normal capillary refill Neurologic/Psychiatric: no motor/sensory deficits, alert, normal mood/affect, oriented x 3 Progress/Results/Core Measures Suspected Sepsis SIRS Temperature: Pulse: Respiratory Rate: Laboratory Tests 05/22/22 06:21: White Blood Count 7.4 Blood Pressure / Mean: Laboratory Tests 05/22/22 06:21: Platelet Count 423H Results/Orders Lab Results Laboratory Tests Test 05/22/22 06:21 Range/Units White Blood Count 7.4 4.3-11.0 10^3/uL Red Blood Count 3.98 3.80-5.11 10^6/uL Hemoglobin 11.6 11.5-16.0 g/dL Hematocrit 36 35-52 % Mean Corpuscular Volume 91 80-99 fL Mean Corpuscular Hemoglobin 29 25-34 pg Mean Corpuscular Hemoglobin Concent 32 32-36 g/dL Red Cell Distribution Width 16.6 H 10.0-14.5 % Platelet Count 423 H 130-400 10^3/uL Mean Platelet Volume 9.5 9.0-12.2 fL Immature Granulocyte % (Auto) 1 % Neutrophils (%) (Auto) 49 42-75 % Lymphocytes (%) (Auto) 42 12-44 % Monocytes (%) (Auto) 5 0-12 % Eosinophils (%) (Auto) 3 0-10 % Basophils (%) (Auto) 1 0-10 % Neutrophils # (Auto) 3.6 1.8-7.8 10^3/uL Lymphocytes # (Auto) 3.1 1.0-4.0 10^3/uL Monocytes # (Auto) 0.3 0.0-1.0 10^3/uL Eosinophils # (Auto) 0.2 0.0-0.3 10^3/uL Basophils # (Auto) 0.1 0.0-0.1 10^3/uL Immature Granulocyte # (Auto) 0.1 0.0-0.1 10^3/uL My Orders Orders - EMIL GUTIERREZ MD Ed Iv/Invasive Line Start (05/22/22 06:18) Cbc With Automated Diff (05/22/22 06:18) Lidocaine 2% (Urojet) (Xylocaine Urojet) (05/22/22 08:15) Lidocaine 2% (Urojet) (Xylocaine Urojet) (05/22/22 08:14) Medications Given in ED Current Medications Medications Dose Ordered Sig/Dean Route Start Time Stop Time Status Last Admin Dose Admin Lidocaine HCl 10 ml ONCE ONCE TOP 05/22/22 08:15 05/22/22 08:16 DC 05/22/22 08:16 10 ML Vital Signs/I&O 05/22/22 05/22/22 06:20 08:30 Temp 36.4 Pulse 67 83 Resp 20 16 B/P (MAP) 126/98 (107) 103/83 Pulse Ox 99 98 O2 Delivery Room Air Room Air Capillary Refill : Progress Note #1: Time: 07:53 Progress Note Attempted to get ahold of Dr Domingo; he is out of town for the next week. I spoke with Dr Whitmore at 0746. He indicated that the patient would need to wait for revision for 3-4 months. He said there is no indication to surgically do anything at this point. I communicated the length and depth of the wound to him and he said with a second closure in the ER he is "not surprised" that it failed. He did recommend antibiotics (which I stated to him she was on currently - Bactrim) and if the wound did not appear purulent (it does NOT) that she was fine to finish those out. He indicated to me that she can soak in a tub. maintain good personal hygeine. She should follow up with Dr Domingo the week of the . I will communicate to the patient if she has any increased pain, bleeding or especially fever she should come back to the ER for re-evaluation. Progress Note #2: Time: 09:12 Progress Note patient was re-examined just prior to discharge. She had scant bleeding/ lochia as well as some oozing from the open wound to the right of the perineum at the introitus. no active bright red bleeding noted, certainly nothing pulsatile whatsoever. wound looked clean. NO purulence. no foul smell. no surrounding erythema. tender to palpation. Departure Impression Primary Impression: Wound dehiscence in puerperium, perineal, delivered/ Disposition: 01 HOME, SELF-CARE Condition: Stable Departure-Patient Inst. Referrals: MARKELL DOMINGO JACQUELINE S DO (PCP/Family) Primary Care Physician Patient Instructions: Episiorrhaphy Add. Discharge Instructions: You can take [id number]-gbf-[id number] ibuprofen or Tylenol as needed for pain. Keep the area as clean as possible with wet wipes/baby wipes. Please finish out the course of antibiotics that you were prescribed a week ago. Warm baths may help with discomfort, it is okay to soak. If you have continued excessive vaginal bleeding, worsening pain or any fever at all please come back to the emergency room for reevaluation. Please call Dr. Domingo's office for follow-up appointment the week of 31 May. Continue stool softeners so that your bowel movements are nice and soft and you do not have to strain. When you do have a bowel movement you may hold a pad against the vagina to help support it while you have your bowel movement. Copy Copies To 1: MARKELL DOMINGO DO Copies To 2: LAILA PALENCIA KATHRYN M MD May 22, 2022 06:25
[2022-05-22 06:28] LABS: BASOPHILS # (AUTO) 0.1 10^3/uL (0.0-0.1); BASOPHILS % (AUTO) 1 % (0-10); EOSINOPHILS # (AUTO) 0.2 10^3/uL (0.0-0.3); EOSINOPHILS % (AUTO) 3 % (0-10); HEMATOCRIT 36 % (35-52); HEMOGLOBIN 11.6 g/dL (11.5-16.0); LYMPHOCYTES # (AUTO) 3.1 10^3/uL (1.0-4.0); LYMPHOCYTES % (AUTO) 42 % (12-44); MEAN CORPUSCULAR HEMOGLOBIN 29 pg (25-34); MEAN CORPUSCULAR HGB CONC 32 g/dL (32-36); MEAN CORPUSCULAR VOLUME 91 fL (80-99); MEAN PLATELET VOLUME 9.5 fL (9.0-12.2); MONOCYTES # (AUTO) 0.3 10^3/uL (0.0-1.0); MONOCYTES % (AUTO) 5 % (0-12); NEUTROPHILS # (AUTO) 3.6 10^3/uL (1.8-7.8); NEUTROPHILS % (AUTO) 49 % (42-75); PLATELET COUNT 423 10^3/uL (130-400); WHITE BLOOD COUNT 7.4 10^3/uL (4.3-11.0)
[2022-05-22] MEDS ORDERED: LIDOCAINE UROJET 2% GEL 10 ML PKG ONE (08:14)
[2022-05-22] MEDS ORDERED: LIDOCAINE UROJET 2% GEL 10 ML PKG TOP ONE (08:15)
[2022-05-22 08:30] VITALS: BP 103/83
== END 2022-05-22 08:30 | disposition home or self-care (01) ==
LOC: EDUNIT# 06:10 → ER 06:12
DX: O90.1 Disruption of perineal obstetric wound (principal); Z28.310 Unvaccinated for COVID-19
CPT/HCPCS: 36415; 85025

== ENCOUNTER 2022-07-05 05:29 | Outpatient (CLI) | payer BC, MEDICAID ==
[~2022-07-05] VITALS: Ht 162.6 cm; Wt 56.5 kg
[~2022-07-05 05:29] MED LIST changes: +ALBU8.5H6 IH; -RT-ALBUINH IH
== END 2022-07-06 07:13 | disposition home or self-care (01) ==
LOC: PREOP 05:29
PROVIDERS: ATTEND Obstetrics & Gynecology
DX: Z01.818 Encounter for other preprocedural examination (principal)

== ENCOUNTER 2022-07-12 07:53 | Day surgery (SDC) | payer BC, MEDICAID ==
[~2022-07-12] VITALS: Ht 162 cm; Wt 56.5 kg
[2022-07-12] VITALS (13 sets, daily range): BP systolic 100–151; BP diastolic 62–111
--- NOTE | 2022-07-12 08:26 | Progress Note-Pre Operative ---
Pre-Operative Progress Note Date of Available H&P: Jul 12, 2022 Date H&P Reviewed: Jul 12, 2022 Time H&P Reviewed: 08:20 History & Physical: H&P Reviewed, Patient Examed, No changes noted Pre-Operative Diagnosis: Episiotomy breakdown MARKELL OQUENDO DO Jul 12, 2022 08:25
--- NOTE | 2022-07-12 08:27 | Discharge Inst-Women's Service ---
Discharge Inst-Women's Serv Depart Medication/Instructions New, Converted or Re-Newed RX: Transmitted to Pharmacy Problems Reviewed?: Yes Consults/Follow Up Additional Follow Up: Yes Orders/Referrals Dr. Oquendo in 4 weeks Activity Activity: Activity as Tolerated Driving Instructions: No Driving for 1 Week NO SMOKING: NO SMOKING Nothing Inside Vagina: No Douching, No [place], No Tampons Diet Discharge Diet: No Restrictions Symptoms to Report to : Bleeding Excessive, Pain Increased, Fever Over 101 Degrees F, Vaginal Bleeding Increase, Questions/Concerns For Any Problems or Questions: Contact Your Physician MARKELL OQUENDO DO Jul 12, 2022 08:27
[2022-07-12] MEDS ORDERED: IBUP-844 PO (08:28)
[2022-07-12] MEDS ORDERED: ACET-93 PO (08:28)
[2022-07-12 08:30] LABS: BASOPHILS % (AUTO) 1 % (0-10); EOSINOPHILS # (AUTO) 0.2 10^3/uL (0.0-0.3); EOSINOPHILS % (AUTO) 5 % (0-10); HEMATOCRIT 35 % (35-52); HEMOGLOBIN 11.3 g/dL (11.5-16.0); LYMPHOCYTES % (AUTO) 42 % (12-44); MEAN CORPUSCULAR HEMOGLOBIN 29 pg (25-34); MEAN CORPUSCULAR HGB CONC 33 g/dL (32-36); MEAN CORPUSCULAR VOLUME 88 fL (80-99); MEAN PLATELET VOLUME 10.7 fL (9.0-12.2); MONOCYTES # (AUTO) 0.3 10^3/uL (0.0-1.0); MONOCYTES % (AUTO) 6 % (0-12); NEUTROPHILS # (AUTO) 2.2 10^3/uL (1.8-7.8); NEUTROPHILS % (AUTO) 46 % (42-75); PLATELET COUNT 252 10^3/uL (130-400); WHITE BLOOD COUNT 4.8 10^3/uL (4.3-11.0)
[2022-07-12] MEDS ORDERED: D5 LR IV SOLUTION 1,000 ML IV SCH (08:30)
[2022-07-12] MEDS ORDERED: ACETAMINOPHEN 500 MG TAB (TYLENOL) PO PRN (08:30)
[2022-07-12] MEDS ORDERED: KETOROLAC 30 MG/ML VIAL IVP ONE (08:30)
[2022-07-12] MEDS ORDERED: ONDANSETRON 4 MG/2 ML (SDV) Z0FRAN IVP PRN ×2 (08:30→10:45)
[2022-07-12] MEDS: LACTATED RINGERS 1,000 ML IV PRN ×2 (09:03→10:31)
[2022-07-12] MEDS ORDERED: NS (IVPB) 100 ML ONE (09:28)
[2022-07-12] MEDS ORDERED: VASOPRESSIN INJECTION 20 UNIT/ML VIAL ONE (09:28)
[2022-07-12] MEDS ORDERED: MIDAZOLAM 2 MG/2 ML (VERSED) VIAL ONE (09:47)
[2022-07-12] MEDS ORDERED: fentaNYL INJ 100 MCG/2 ML AMP ONE (09:47)
[2022-07-12] MEDS: BUPIVACAINE 0.25% 30 ML (SENSORCAINE) VIAL IJ ONE ×2 (10:18→11:26)
[2022-07-12] MEDS ORDERED: BUPIVACAINE 0.25% 30 ML (SENSORCAINE) VIAL ONE (10:19)
[2022-07-12] MEDS ORDERED: HYDROmorphone 2 MG/ML VIAL (DILAUDID) ONE ×2 (10:22→10:59)
[2022-07-12] MEDS ORDERED: GLYCOPYRROLATE 0.2 MG/ML (ROBINUL) 2 ML VIAL ONE (10:26)
[2022-07-12] MEDS ORDERED: proPOfol 200 MG/20 ML (DIPRIVAN) VIAL IV ONE (10:26)
[2022-07-12] MEDS ORDERED: ONDANSETRON 4 MG/2 ML (SDV) Z0FRAN ONE (10:26)
[2022-07-12] MEDS ORDERED: LIDOCAINE PF 2% 5 ML (XYLOCAINE) VIAL ONE (10:27)
[2022-07-12] MEDS ORDERED: BACITRACIN OINTMENT 28 GM TUBE ONE (10:34)
[2022-07-12] MEDS: NS (IVPB) 100 ML IV ONE ×2 (10:35→11:30)
[2022-07-12] MEDS: BACITRACIN OINTMENT 28 GM TUBE TOP ONE ×2 (10:41→11:25)
[2022-07-12] MEDS ORDERED: KETOROLAC 30 MG/ML VIAL ONE (10:43)
[2022-07-12] MEDS ORDERED: HYDROmorphone 2 MG/ML VIAL (DILAUDID) IV ONE (10:45)
[2022-07-12] MEDS ORDERED: SEVOFLURANE (ULTANE) 15 ML INHAL SOLN ONE (10:55)
[2022-07-12] MEDS ORDERED: VASOPRESSIN INJECTION 20 UNIT/ML VIAL IJ ONE (11:43)
[2022-07-12] MEDS ORDERED: IBUPROFEN TABLET 200 MG TAB PO ONE (11:54)
[2022-07-12] MEDS ORDERED: ACETAMINOPHEN 500 MG TAB (TYLENOL) ONE (11:54)
[2022-07-12] MEDS ORDERED: IBUPROFEN TABLET 200 MG TAB PO STA (11:57)
[2022-07-12] MEDS ORDERED: IBUPROFEN 600 MG (MOTRIN) TAB PO SCH (12:00)
[2022-07-12] MEDS ORDERED: LIDOCAINE TOPICAL 4% 50 ML BTL TP NR (12:15)
[2022-07-12] MEDS ORDERED: diphenhydrAMINE 50 MG/ML INJ (BENADRYL) ONE (12:25)
[2022-07-12] MEDS ORDERED: diphenhydrAMINE 50 MG/ML INJ (BENADRYL) IVP ONE (12:30)
--- NOTE | 2022-07-12 15:07 | Anesthesia-General Post-Op ---
General Patient Condition Pain: Uncontrolled Post Op Complications Complications None Follow Up Care/Instructions Patient Instructions None needed. Anesthesia/Patient Condition Patient Condition Patient was seen in PACU and doing well other than C/O severe pain. She has allergies to morphine and fentanyl, so hydromorphone was used. She was given 1 mg intraop and 2 mg postop, so that significant of pain was somewhat surprising. No other complaints, stable vital signs, no apparent adverse anesthesia problems. RICHARDSON BOYER DO Jul 12, 2022 15:07
--- NOTE | 2022-07-12 16:29 | OPERATIVE REPORT ---
DATE OF SERVICE: 07/12/2022 PREOPERATIVE DIAGNOSES: 1. A 22-year-old female with episiotomy breakdown. 2. IUD insertion. POSTOPERATIVE DIAGNOSES: 1. A 22-year-old female with episiotomy breakdown. 2. IUD insertion. PROCEDURE: Episiotomy revision via perineoplasty with IUD placement. SURGEON: Dr. Markell Oquendo. ANESTHESIA: LMA, general. ESTIMATED BLOOD LOSS: Minimal. URINE OUTPUT: 80 mL drained at the start of the procedure. FLUIDS: 800 mL lactated Ringer's solution. FINDINGS: Grossly normal-appearing internal vagina, cervix, episiotomy breakdown of RML episiotomy, good cutaneous and mucosal regrowth however, dysfunctional reapproximation after granulation tissue had resolved. SPECIMENS SENT: None. INDICATIONS FOR PROCEDURE: This 22-year-old female is the patient who had a dehiscence of her episiotomy wound approximately two weeks . It was reapproximated by covering physician; however, that broke down again. I discussed with the patient, allowing for it to heal up to 6-8 weeks before we proceed with revision. She also wished to have IUD placed as she did not desire childbearing at this point. Risk of the procedure is discussed with the patient in detail including risk of bleeding, infection, damaging the vagina and healing process. After everything was discussed with the patient in detail, consent was obtained and the patient was taken to the operating room. DESCRIPTION OF PROCEDURE: Once in the operating room, anesthesia was found to be adequate. She was placed in dorsal lithotomy position, prepped and draped in normal sterile fashion. First, IUD is placed by placing a weighted speculum into the patient's vagina. Right angle retractor was used to visualize the cervix, was grasped at 12 o'clock using a long Allis clamp. A paracervical block was then performed at 3 and 9 o'clock position on the cervix. Care was taken to aspirate before injecting 5 mL of 0.25% Marcaine were injected into each site. I then gently sent uterine cavity, which was found to be 8 cm. I placed a Liletta IUD to a depth of 8 cm, deploying it in the appropriate fashion and trimming the strings approximately 1 cm outside of the external cervical os. I then removed the weighted speculum and all other instruments from the patient's vagina. I infiltrated the area of the perineal body using vasopressin and concentration of 10 units in 100 mL of normal saline. Once this was done, I made an incision around the inappropriately healed episiotomy wound using a knife and dissect off of the underlying scar and granulation tissue formation until healthy subcutaneous tissue is encountered. The bulbocavernosus muscles were encountered as well. Once this was done, I closed the wound in a typical episiotomy fashion starting at the apex of the vaginal incision. I used 3-0 Vicryl suture in a running locked fashion to the mucocutaneous junction, at which point I placed 2 crown sutures through the bulbocavernosis muscles reapproximating and building up the perineal body. Once the perineal body was reapproximated, I reapproximated the submucosa using 3-0 Vicryl suture in a running fashion down the perineum and then reapproximated the skin in a running subcuticular fashion, after which there was no active bleeding noted from any of my dissection planes. I have the area covered with bacitracin ointment. Lap and sponge counts were correct at the end of the procedure. Instrument counts were correct as well. Job ID: [id number] DocumentID: [id number] Dictated Date: 07/12/2022 11:28:09 Regional Marketing Director Date: 07/12/2022 16:27:00 Dictated By: MARKELL OQUENDO DO
== END 2022-07-12 13:50 | disposition home or self-care (01) ==
LOC: SDC 07:53
PROVIDERS: ATTEND Obstetrics & Gynecology
DX: O90.1 Disruption of perineal obstetric wound (principal); Z30.430 Encounter for insertion of intrauterine contraceptive device; Z87.891 Personal history of nicotine dependence
CPT/HCPCS: 36415; 84703; 85025; 86850; 86900; 86901; 87081

== ENCOUNTER 2022-07-14 20:12 | Emergency (ER) | payer BC, MEDICAID ==
[~2022-07-14 20:12] MED LIST changes: +ACET-93 PO
== END 2022-07-14 21:17 | disposition left against medical advice (07) ==
LOC: EDUNIT# 20:12 → ER 20:14
DX: R11.10 Vomiting, unspecified (principal)